=== PATIENT | female | born 1980 | race Caucasian/White ===

== ENCOUNTER 2018-04-16 07:46 | Emergency (ER) | payer SELFPAY | END 2018-04-16 08:50 | disposition home or self-care (01) | LOC: ER 07:46 | DX: M54.32 Sciatica, left side (principal); F17.200 Nicotine dependence, unspecified, uncomplicated | CPT/HCPCS: 99283 ==

== ENCOUNTER 2020-02-25 08:33 | Inpatient (IN) | payer SELFPAY ==
[2020-02-25] VITALS (7 sets, daily range): BP systolic 92–113; BP diastolic 42–79
[~2020-02-25] VITALS: Ht 154.9 cm; Wt 46.6 kg
[~2020-02-25 08:33] MED LIST: CYCL10TA2 PO; GUAI600T47 PO; HYDR-2678 PO; METH4TAB2 PO; NAPR-514 PO
[2020-02-25] MEDS ORDERED: IV NORMAL SALINE 1000ML BAG 1,000 ML IV ONE (09:00)
[2020-02-25] MEDS ORDERED: PROCHLORPERAZINE 10 MG/2 ML VIAL. IV ONE (09:00)
[2020-02-25] MEDS ORDERED: DEXAMETHASONE SOD PHOS 4 MG/ML VIAL IVP ONE (09:00)
[2020-02-25] MEDS ORDERED: diphenhydrAMINE HCL 25 MG CAPSULE PO ONE (09:00)
[2020-02-25 09:09] LABS: CLARITY,URINE TURBID; COLOR,URINE RED; PH,URINE 5.5 (<5.0-8.0)
[2020-02-25 09:26] LABS: BACTERIA,URINE MOD /HPF (0-FEW); SQUAMOUS EPITHELIAL CELL,UR MOD /LPF
[2020-02-25 09:27] LABS: RBC,URINE >40 /HPF (0-2)
[2020-02-25] MEDS ORDERED: MORPHINE SULFATE 10 MG/ML VIAL. IV ONE ×3 (09:30→12:00)
[2020-02-25 09:44] LABS: BASO # 0.1 x10^3/uL (0.0-0.2); BASO % 0 % (0-3); EOS % 0 % (0-3); HEMOGLOBIN 14.7 g/dL (12.0-15.5); LYMPH % 5 % (24-48); MEAN CORPUSCULAR HEMOGLOBIN 34 pg (25-35); MEAN CORPUSCULAR HGB CONC 35 g/dL (31-37); MEAN CORPUSCULAR VOLUME 97 fL (79-100); MONO # 0.9 x10^3/uL (0.0-1.1); MONO % 4 % (0-9); NEUT # 17.9 x10^3/uL (1.8-7.7); NEUT % 90 % (31-73); PLATELET COUNT 245 x10^3/uL (140-400); RED BLOOD COUNT 4.31 x10^6/uL (3.50-5.40); RED CELL DISTRIBUTION WIDTH 12.8 % (11.5-14.5); WHITE BLOOD COUNT 19.9 x10^3/uL (4.0-11.0)
[2020-02-25] MEDS ORDERED: IOHEXOL 300 MG/ML 100ML VIAL. IV ONE (10:00)
[2020-02-25] MEDS ORDERED: IOHEXOL 240 MG/ML 50ML VIAL. PO ONE (10:00)
[2020-02-25] MEDS ORDERED: CONTRAST GIVEN. MC PRN (10:00)
[2020-02-25 10:30] LABS: % BANDS 6 % (0-9); % LYMPHS 6 % (24-48); % MONOS 2 % (0-10); % SEGS 86 % (35-66); PLT ESTIMATE ADEQUATE (ADEQUATE); TOXIC VACUOLATION SLIGHT
[2020-02-25 10:43] LABS: ANION GAP 13 (6-14); BLOOD UREA NITROGEN 20 mg/dL (7-20); BUN/CREATININE RATIO 25 (6-20); CARBON DIOXIDE 24 mmol/L (21-32); CHLORIDE 99 mmol/L (98-107); CREATININE 0.8 mg/dL (0.6-1.0); GFR 80.7; GLUCOSE 110 mg/dL (70-99); POTASSIUM 3.6 mmol/L (3.5-5.1); SODIUM 136 mmol/L (136-145)
[2020-02-25 10:49] LABS: ALBUMIN 3.6 g/dL (3.4-5.0); ALBUMIN/GLOBULIN RATIO 0.9 (1.0-1.7); ALK PHOS 72 U/L (46-116); AST (SGOT) 12 U/L (15-37); TOTAL BILIRUBIN 1.4 mg/dL (0.2-1.0); TOTAL PROTEIN 7.6 g/dL (6.4-8.2)
[2020-02-25 10:50] LABS: ALT (SGPT) < 6 U/L (14-59)
--- NOTE | 2020-02-25 11:18 | RAD ---
Examination: CT ABD PELV W/ORAL IV CONTRAST History: Right lower quadrant abdominal pain Comparison/Correlation: None Findings: Axial images of the abdomen and pelvis were obtained following IV and oral contrast. Sagittal and coronal reformatted images were provided. Visualized lung bases are clear. Liver, spleen, pancreas, adrenal glands, and left kidney are normal. Right renal superior pole calyceal calculus measuring 0.3 cm diameter is nonobstructive. Moderate gaseous distention of the proximal colon is seen. The appendix is very distended fluid and calculi within it. There is ascites about the inferior tip of the right hepatic lobe and along the right paracolic gutter. Fluid is noted posterior to the uterine fundus and superior uterine body and appears partially loculated. This measures 4.8 cm transverse by 1 cm anteroposterior on axial image 59. Urinary bladder is unremarkable. There is no extraluminal gas. Transitional L5 vertebra. Impression: Acute appendicitis. Ascites inferior to the right hepatic lobe inferior tip and right paracolic gutter also seen. While there is small amount of fluid which appears partially loculated along the posterior aspect of the superior uterus, liver is no extraluminal gas or other findings definite for perforation. Nonobstructive right renal superior pole calyceal calculus. PQRS Compliance Statement: One or more of the following individualized dose reduction techniques were utilized for this examination: 1. Automated exposure control 2. Adjustment of the mA and/or kV according to patient size 3. Use of iterative reconstruction technique Electronically signed by: Goyo Reyes MD (02/25/2020 11:15 AM) [id number]
[2020-02-25] MEDS ORDERED: PIPERACILLIN/TAZOBACTAM 3.375 GM in IV NORMAL SALINE 50ML 50 ML IV ONE (12:00)
[2020-02-25] MEDS ORDERED: ONDANSETRON PF 4 MG/2 ML VIAL. IVP ONE (13:00)
--- NOTE | 2020-02-25 14:49 | PHYS DOC ---
Past Medical History Past Medical History: Other Additional Past Medical Histor: PNEUMO 2014 RIGHT LUNG,Collapsed lung x 4. Past Surgical History: Other Additional Past Surgical Histo: collapsed lung, RIGHT CHEST TUBE PLACEMENT Smoking Status: Current Every Day Smoker Alcohol Use: None Drug Use: Marijuana General Adult EDM: Chief Complaint: ABDOMINAL PAIN HPI: HPI: Patient is a 39 year old female who presents with periumbilical and right lower quadrant abdominal pain that started on Monday. This pain is progressively gotten worse. She believes that she may have had a fever on Monday. She has had intermittent nausea and vomiting since the pain started. She states that the pain is so severe she has a hard time walking or moving around. She is never had anything similar to this in the past. She has not been able to eat anything for the last 2 days. She is tried Tylenol and ibuprofen at home without any relief. She denies any vaginal discharge, vaginal bleeding, STD concerns, dysuria, hematuria. Review of Systems: Review of Systems: General: Reports fever, chills, sweats, fatigue Eyes: Denies drainage, blurred vision HENT: Denies rhinorrhea, sore throat Respiratory: Denies cough, shortness of breath, wheezing Cardiac: Denies edema, palpitations, chest pain GI: Reports abdominal pain, N/V MSK: Denies back pain, neck pain Skin: Denies rash, jaundice Neuro: Denies headache, dizziness Psychiatric: Denies SI/HI Heart Score: Risk Factors: Risk Factors: DM, Current or recent (<one month) smoker, HTN, HLP, family history of CAD, obesity. Risk Scores: Score 0 - 3: 2.5% MACE over next 6 weeks - Discharge Home Score 4 - 6: 20.3% MACE over next 6 weeks - Admit for Clinical Observation Score 7 - 10: 72.7% MACE over next 6 weeks - Early Invasive Strategies Current Medications: Current Medications Medications (Trade) Dose Ordered Sig/Chente Start Time Stop Time Status Last Admin Dose Admin Dexamethasone Sodium Phosphate (Decadron) 10 mg 1X ONCE 02/25/20 09:00 02/25/20 09:18 DC Diphenhydramine HCl (Benadryl) 25 mg 1X ONCE 02/25/20 09:00 02/25/20 09:18 DC Info (CONTRAST GIVEN -- Rx MONITORING) 1 each PRN DAILY PRN 02/25/20 10:00 02/27/20 09:59 Iohexol (Omnipaque 240 Mg/ml) 50 ml 1X ONCE 02/25/20 10:00 02/25/20 10:01 DC 02/25/20 10:00 50 ML Iohexol (Omnipaque 300 Mg/ml) 75 ml 1X ONCE 02/25/20 10:00 02/25/20 10:01 DC 02/25/20 10:00 75 ML Morphine Sulfate (Morphine Sulfate) 5 mg 1X ONCE 02/25/20 12:00 02/25/20 12:01 DC 02/25/20 12:47 5 MG Piperacillin Sod/ Tazobactam Sod 3.375 gm/Sodium Chloride 50 ml @ 100 mls/hr 1X ONCE 02/25/20 12:00 02/25/20 12:29 DC 02/25/20 13:19 100 MLS/HR Prochlorperazine Edisylate (Compazine) 10 mg 1X ONCE 02/25/20 09:00 02/25/20 09:18 DC Sodium Chloride 1,000 ml @ 0 mls/hr 1X ONCE 02/25/20 09:00 02/25/20 09:01 DC 02/25/20 09:46 1,000 MLS/HR Allergies: Allergies: Allergies Coded Allergies Type Severity Reaction Last Updated Verified No Known Drug Allergies 02/25/20 No Physical Exam: PE: Constitutional: Well developed, well nourished, Cooperative, NAD, distressed, rolling around in pain HEENT: Normocephalic, atraumatic, oropharynx moist, EOMI, PERRL, no drainage from eyes, normal conjunctiva Neck: Supple, normal range of motion, no stridor Cardiovascular: Tachycardic, 2+ radial pulses bilaterally, no edema Respiratory: CTA bilaterally, no respiratory distress, no wheezing/crackles Abdomen: Soft, nondistended, no masses, periumbilical and right lower quadrant tenderness with voluntary guarding Skin: Warm, dry, intact Extremities: No obvious deformities Neurologic: Alert and Oriented x3, motor and sensory function grossly normal, no focal deficits Psychologic: Normal affect, normal judgment, normal mood. No SI/HI Current Patient Data: Labs: Laboratory Tests Test 02/25/20 08:45 02/25/20 09:00 02/25/20 09:33 02/25/20 10:25 Urine Collection Type Unknown Urine Color Red Urine Clarity Turbid Urine pH 5.5 (<5.0-8.0) Urine Specific [place] >=1.030 (1.000-1.030) Urine Protein mg/dL (NEG-TRACE) Urine Glucose (UA) mg/dL (NEG) Urine Ketones (Stick) mg/dL (NEG) Urine Blood (NEG) Urine Nitrite (NEG) Urine Bilirubin (NEG) Urine Urobilinogen Dipstick mg/dL (0.2 mg/dL) Urine Leukocyte Esterase (NEG) Urine RBC >40 /HPF (0-2) Urine WBC 5-10 /HPF (0-4) Urine Squamous Epithelial Cells Mod /LPF Urine Bacteria Mod /HPF (0-FEW) POC Urine HCG, Qualitative Hcg negative (Negative) White Blood Count 19.9 x10^3/uL (4.0-11.0) H Red Blood Count 4.31 x10^6/uL (3.50-5.40) Hemoglobin 14.7 g/dL (12.0-15.5) Hematocrit 42.0 % (36.0-47.0) Mean Corpuscular Volume 97 fL (79-100) Mean Corpuscular Hemoglobin 34 pg (25-35) Mean Corpuscular Hemoglobin Concent 35 g/dL (31-37) Red Cell Distribution Width 12.8 % (11.5-14.5) Platelet Count 245 x10^3/uL (140-400) Neutrophils (%) (Auto) 90 % (31-73) H Lymphocytes (%) (Auto) 5 % (24-48) L Monocytes (%) (Auto) 4 % (0-9) Eosinophils (%) (Auto) 0 % (0-3) Basophils (%) (Auto) 0 % (0-3) Neutrophils # (Auto) 17.9 x10^3/uL (1.8-7.7) H Lymphocytes # (Auto) 1.0 x10^3/uL (1.0-4.8) Monocytes # (Auto) 0.9 x10^3/uL (0.0-1.1) Eosinophils # (Auto) 0.0 x10^3/uL (0.0-0.7) Basophils # (Auto) 0.1 x10^3/uL (0.0-0.2) Segmented Neutrophils % 86 % (35-66) H Band Neutrophils % 6 % (0-9) Lymphocytes % 6 % (24-48) L Monocytes % 2 % (0-10) Toxic Vacuolation Slight Platelet Estimate Adequate (ADEQUATE) Sodium Level 136 mmol/L (136-145) Potassium Level 3.6 mmol/L (3.5-5.1) Chloride Level 99 mmol/L (98-107) Carbon Dioxide Level 24 mmol/L (21-32) Anion Gap 13 (6-14) Blood Urea Nitrogen 20 mg/dL (7-20) Creatinine 0.8 mg/dL (0.6-1.0) Estimated GFR (Cockcroft-Gault) 80.7 BUN/Creatinine Ratio 25 (6-20) H Glucose Level 110 mg/dL (70-99) H Calcium Level 9.0 mg/dL (8.5-10.1) Total Bilirubin 1.4 mg/dL (0.2-1.0) H Aspartate Amino Transferase (AST) 12 U/L (15-37) L Alanine Aminotransferase (ALT) < 6 U/L (14-59) L Alkaline Phosphatase 72 U/L (46-116) Total Protein 7.6 g/dL (6.4-8.2) Albumin 3.6 g/dL (3.4-5.0) Albumin/Globulin Ratio 0.9 (1.0-1.7) L Laboratory Tests 02/25/20 09:33 Laboratory Tests 02/25/20 10:25 Vital Signs: Vital Signs Date Time Temp Pulse Resp B/P (MAP) Pulse Ox O2 Delivery O2 Flow Rate FiO2 02/25/20 14:11 80 23 112/59 (76) 96 Room Air 02/25/20 08:45 97.6 97.6 EKG: EKG: [] Radiology/Procedures: Radiology/Procedures: [] Course & Med Decision Making: Course & Med Decision Making Pertinent Labs and Imaging studies reviewed. (See chart for details) Patient is a 39 year- old female who presents to the Emergency Room complaining of abdominal pain, nausea, vomiting. On exam, patient has lower abdominal tenderness concerning for possible appendicitis. Other differential includes kidney stone, pyelonephritis, gastroenteritis, ovarian cyst. Patient will treated symptomatically. CBC, CMP, lipase, UA, CT abdomen and pelvis was ordered to evaluate for cause of symptoms. CT is suggestive of appendicitis. Antibiotics were ordered. Patient was discussed with on the on-call surgeon, Dr. Kohli. At this time, patient will be admitted for further management by the surgery team. Results and plan were discussed with the patient and patient states understanding. Patient was given the opportunity to ask questions and all questions were answered. Dragon Disclaimer: Dragon Disclaimer: This electronic medical record was generated, in whole or in part, using a voice recognition dictation system. Departure Departure Impression: Primary Impression: Appendicitis with peritonitis Disposition: ADMITTED INPATIENT Condition: STABLE Referrals: NO PCP (PCP) ELISABETH LUTZ MD February 25, 2020 14:49
[2020-02-25] MEDS ORDERED: IV RINGERS,LACTATED 1000ML 1,000 ML IV SCH ×2 (15:04)
[2020-02-25] MEDS ORDERED: LIDOCAINE 1% PF 2 ML VIAL. ID PRN ×2 (15:15)
[2020-02-25] MEDS ORDERED: HYDROmorphone 2 MG/ML VIAL IV PRN ×2 (15:15)
[2020-02-25] MEDS ORDERED: ONDANSETRON PF 4 MG/2 ML VIAL. IV PRN ×2 (15:15)
[2020-02-25] MEDS ORDERED: MORPHINE SULFATE 2 MG/ML VIAL. IV PRN ×3 (15:15→17:15)
[2020-02-25] MEDS ORDERED: fentaNYL PF VIAL 100 MCG/2 ML VIAL IV PRN ×4 (15:15)
[2020-02-25] MEDS ORDERED: PROCHLORPERAZINE 10 MG/2 ML VIAL. IV PRN ×2 (15:15)
[2020-02-25] MEDS ORDERED: SEVOFLURANE 61 TO 120 MINUTES. IH ONE (15:21)
[2020-02-25] MEDS ORDERED: GLYCOPYRROLATE 1 MG/5 ML VIAL. ONE (15:21)
[2020-02-25] MEDS ORDERED: PROPOFOL 10 MG/ML (20ML) VIAL. IV ONE (15:22)
[2020-02-25] MEDS ORDERED: ONDANSETRON PF 4 MG/2 ML VIAL. ONE (15:22)
[2020-02-25] MEDS ORDERED: fentaNYL PF VIAL 100 MCG/2 ML VIAL ONE ×2 (15:22→16:52)
[2020-02-25] MEDS ORDERED: MIDAZOLAM HCL/PF 2 MG/2 ML VIAL. ONE (15:22)
[2020-02-25] MEDS ORDERED: SUCCINYLCHOLINE 200 MG/10 ML VIAL. ONE (15:22)
[2020-02-25] MEDS ORDERED: ROCURONIUM 50 MG/5 ML VIAL. ONE (15:22)
[2020-02-25] MEDS ORDERED: LIDOCAINE 2% PF 5 ML VIAL. ONE (15:22)
[2020-02-25] MEDS ORDERED: DEXAMETHASONE SOD PHOS 4 MG/ML VIAL ONE (15:22)
[2020-02-25] MEDS ORDERED: NEOSTIGMINE METHYLSULFATE 5 MG/5 ML SYRINGE. ONE (15:22)
[2020-02-25] MEDS ORDERED: KETOROLAC 30 MG/ML VIAL. ONE (15:22)
[2020-02-25] MEDS ORDERED: BUPIVACAINE-EPI 0.5%-1:200000 MPF 30 ML VIAL. ONE (15:34)
--- NOTE | 2020-02-25 15:40 | PDOC1 ---
History and Physical Date of Admission Date of Admission DATE: 02/25/20 TIME: 15:35 Identification/Chief Complaint Chief Complaint RLQ abd pain Source Source: Chart review, Patient History of Present Illness History of Present Illness 39 yo F with c/o RLQ abd pain. Pt developed N/V abd pain, localizing RLQ, starting 02/21 and gradually worsened prompting admission today. Past Medical History Pulmonary: Other (PTX) Past Surgical History Past Surgical History: Other (multiple chest tubes) Family History Family History: Heart Disease, Stroke Social History Smoke: 1 pack per day ALCOHOL: none Drugs: None, Marijuana Current Problem List Problem List Problems Medical Problems: (1) Appendicitis with peritonitis Status: Acute Current Medications Current Medications Current Medications Prochlorperazine Edisylate (Compazine) 10 mg 1X ONCE IV ; Start 02/25/20 at 09:00; Stop 02/25/20 at 09:18; Status DC Sodium Chloride 1,000 ml @ 0 mls/hr 1X ONCE IV Last administered on 02/25/20at 09:46; Start 02/25/20 at 09:00; Stop 02/25/20 at 09:01; Status DC Dexamethasone Sodium Phosphate (Decadron) 10 mg 1X ONCE IVP ; Start 02/25/20 at 09:00; Stop 02/25/20 at 09:18; Status DC Diphenhydramine HCl (Benadryl) 25 mg 1X ONCE PO ; Start 02/25/20 at 09:00; Stop 02/25/20 at 09:18; Status DC Morphine Sulfate (Morphine Sulfate) 5 mg 1X ONCE IV Last administered on 02/25/20at 09:50; Start 02/25/20 at 09:30; Stop 02/25/20 at 09:31; Status DC Iohexol (Omnipaque 300 Mg/ml) 75 ml 1X ONCE IV Last administered on 02/25/20at 10:00; Start 02/25/20 at 10:00; Stop 02/25/20 at 10:01; Status DC Iohexol (Omnipaque 240 Mg/ml) 50 ml 1X ONCE PO Last administered on 02/25/20at 10:00; Start 02/25/20 at 10:00; Stop 02/25/20 at 10:01; Status DC Info (CONTRAST GIVEN -- Rx MONITORING) 1 each PRN DAILY PRN MC SEE COMMENTS; Start 02/25/20 at 10:00; Stop 02/27/20 at 09:59 Morphine Sulfate (Morphine Sulfate) 5 mg 1X ONCE IV Last administered on 02/25/20at 10:46; Start 02/25/20 at 10:45; Stop 02/25/20 at 10:46; Status DC Morphine Sulfate (Morphine Sulfate) 5 mg 1X ONCE IV Last administered on 02/25/20at 12:47; Start 02/25/20 at 12:00; Stop 02/25/20 at 12:01; Status DC Piperacillin Sod/ Tazobactam Sod 3.375 gm/Sodium Chloride 50 ml @ 100 mls/hr 1X ONCE IV Last administered on 02/25/20at 13:19; Start 02/25/20 at 12:00; Stop 02/25/20 at 12:29; Status DC Ondansetron HCl (Zofran) 4 mg 1X ONCE IVP Last administered on 02/25/20at 13:18; Start 02/25/20 at 13:00; Stop 02/25/20 at 13:01; Status DC Morphine Sulfate (Morphine Sulfate) 2 mg PRN Q2HR PRN IV PAIN; Start 02/25/20 at 15:15 Ondansetron HCl (Zofran) 4 mg PRN Q6HRS PRN IV NAUSEA/VOMITING; Start 02/25/20 at 15:15; Stop 02/26/20 at 15:14; Status UNV Fentanyl Citrate (Fentanyl 2ml Vial) 25 mcg PRN Q5MIN PRN IV MILD PAIN 1-3; Start 02/25/20 at 15:15; Stop 02/26/20 at 15:14; Status UNV Fentanyl Citrate (Fentanyl 2ml Vial) 50 mcg PRN Q5MIN PRN IV MODERATE TO SEVERE PAIN; Start 02/25/20 at 15:15; Stop 02/26/20 at 15:14; Status UNV Morphine Sulfate (Morphine Sulfate) 1 mg PRN Q10MIN PRN IV SEVERE PAIN 7-10; Start 02/25/20 at 15:15; Stop 02/26/20 at 15:14; Status UNV Ringer's Solution 1,000 ml @ 30 mls/hr Q24H IV ; Start 02/25/20 at 15:04; Stop 02/26/20 at 03:03; Status UNV Lidocaine HCl (Xylocaine-Mpf 1% 2ml Vial) 2 ml PRN 1X PRN ID PRIOR TO IV START; Start 02/25/20 at 15:15; Stop 02/26/20 at 15:14; Status UNV Hydromorphone HCl (Dilaudid) 0.5 mg PRN Q10MIN PRN IV SEV PAIN, Second choice; Start 02/25/20 at 15:15; Stop 02/26/20 at 15:14; Status UNV Prochlorperazine Edisylate (Compazine) 5 mg PACU PRN PRN IV NAUSEA, MRX1; Star t 02/25/20 at 15:15; Stop 02/26/20 at 15:14; Status UNV Ondansetron HCl (Zofran) 4 mg PRN Q6HRS PRN IV NAUSEA/VOMITING; Start 02/25/20 at 15:15; Stop 02/25/20 at 22:00 Fentanyl Citrate (Fentanyl 2ml Vial) 25 mcg PRN Q5MIN PRN IV MILD PAIN 1-3; Start 02/25/20 at 15:15; Stop 02/25/20 at 22:00 Fentanyl Citrate (Fentanyl 2ml Vial) 50 mcg PRN Q5MIN PRN IV MODERATE TO SEVERE PAIN; Start 02/25/20 at 15:15; Stop 02/25/20 at 20:00 Morphine Sulfate (Morphine Sulfate) 1 mg PRN Q10MIN PRN IV SEVERE PAIN 7-10; Start 02/25/20 at 15:15; Stop 02/25/20 at 20:00 Ringer's Solution 1,000 ml @ 30 mls/hr Q24H IV ; Start 02/25/20 at 15:04; Stop 02/26/20 at 03:03 Lidocaine HCl (Xylocaine-Mpf 1% 2ml Vial) 2 ml PRN 1X PRN ID PRIOR TO IV START; Start 02/25/20 at 15:15; Stop 02/25/20 at 22:00 Hydromorphone HCl (Dilaudid) 0.5 mg PRN Q10MIN PRN IV SEV PAIN, Second choice; Start 02/25/20 at 15:15; Stop 02/25/20 at 22:00 Prochlorperazine Edisylate (Compazine) 5 mg PACU PRN PRN IV NAUSEA, MRX1; Start 02/25/20 at 15:15; Stop 02/25/20 at 22:00 Glycopyrrolate (Robinul) 1 mg STK-MED ONCE .ROUTE ; Start 02/25/20 at 15:21; Stop 02/25/20 at 15:22; Status DC Sevoflurane (Ultane) 60 ml STK-MED ONCE IH ; Start 02/25/20 at 15:21; Stop 02/25/20 at 15:22; Status DC Succinylcholine Chloride (Anectine) 200 mg STK-MED ONCE .ROUTE ; Start 02/25/20 at 15:22; Stop 02/25/20 at 15:22; Status DC Rocuronium [place] (Zemuron) 50 mg STK-MED ONCE .ROUTE ; Start 02/25/20 at 15:22; Stop 02/25/20 at 15:22; Status DC Fentanyl Citrate (Fentanyl 2ml Vial) 100 mcg STK-MED ONCE .ROUTE ; Start 02/25/20 at 15:22; Stop 02/25/20 at 15:22; Status DC Neostigmine [place] (Neostigmine Methylsulfate) 5 mg STK-MED ONCE .ROUTE ; Start 02/25/20 at 15:22; Stop 02/25/20 at 15:22; Status DC Midazolam HCl (Versed) 2 mg STK-MED ONCE .ROUTE ; Start 02/25/20 at 15:22; Stop 02/25/20 at 15:22; Status DC Propofol (Diprivan) 200 mg STK-MED ONCE IV ; Start 02/25/20 at 15:22; Stop 02/25/20 at 15:22; Status DC Lidocaine HCl (Lidocaine Pf 2% Vial) 5 ml STK-MED ONCE .ROUTE ; Start 02/25/20 at 15:22; Stop 02/25/20 at 15:22; Status DC Ketorolac Tromethamine (Toradol 30mg Vial) 30 mg STK-MED ONCE .ROUTE ; Start 02/25/20 at 15:22; Stop 02/25/20 at 15:22; Status DC Ondansetron HCl (Zofran) 4 mg STK-MED ONCE .ROUTE ; Start 02/25/20 at 15:22; St op 02/25/20 at 15:23; Status DC Dexamethasone Sodium Phosphate (Decadron) 4 mg STK-MED ONCE .ROUTE ; Start 02/25/20 at 15:22; Stop 02/25/20 at 15:23; Status DC Active Scripts Active Naproxen 500 Mg Tablet 1 Tab PO BID Cyclobenzaprine Hcl 10 Mg Tablet 1 Tab PO TID Medrol (Methylprednisolone) 4 Mg Tab.ds.pk 1 Pkg PO UD Mucinex (Guaifenesin) 600 Mg Tablet.er 1 Tab PO BID Lortab 5-325 mg Tablet (Hydrocodone/Acetaminophen) 1 Each Tablet 1 Tab PO PRN Q6HRS PRN 0 Days Reported Cyclobenzaprine Hcl 10 Mg Tablet 1 Tab PO TID Allergies Allergies: Coded Allergies: No Known Drug Allergies (Unverified , 02/25/20) ROS Gastrointestinal: Yes Nausea, Yes Vomiting, Yes Abdominal Pain Physical Exam General: Alert, Oriented X3, Cooperative, moderate distress HEENT: Atraumatic Lungs: Normal air movement Abdomen: Soft, Other (TTP RLQ) Rectal Exam: not examined Extremities: No clubbing, No cyanosis Skin: No rashes, No breakdown Neuro: Normal speech, Sensation intact Psych/Mental Status: Mental status NL, Mood NL Vitals Vitals Vital Signs Date Time Temp Pulse Resp B/P (MAP) Pulse Ox O2 Delivery O2 Flow Rate FiO2 02/25/20 14:11 80 23 112/59 (76) 96 Room Air 02/25/20 08:45 97.6 97.6 Labs Labs Laboratory Tests Test 02/25/20 08:45 02/25/20 09:00 02/25/20 09:33 02/25/20 10:25 Urine Collection Type Unknown Urine Color Red Urine Clarity Turbid Urine pH 5.5 (<5.0-8.0) Urine Specific [place] >=1.030 (1.000-1.030) Urine Protein mg/dL (NEG-TRACE) Urine Glucose (UA) mg/dL (NEG) Urine Ketones (Stick) mg/dL (NEG) Urine Blood (NEG) Urine Nitrite (NEG) Urine Bilirubin (NEG) Urine Urobilinogen Dipstick mg/dL (0.2 mg/dL) Urine Leukocyte Esterase (NEG) Urine RBC >40 /HPF (0-2) Urine WBC 5-10 /HPF (0-4) Urine Squamous Epithelial Cells Mod /LPF Urine Bacteria Mod /HPF (0-FEW) Bedside Urine HCG, Qualitative Hcg negative (Negative) White Blood Count 19.9 x10^3/uL (4.0-11.0) Red Blood Count 4.31 x10^6/uL (3.50-5.40) Hemoglobin 14.7 g/dL (12.0-15.5) Hematocrit 42.0 % (36.0-47.0) Mean Corpuscular Volume 97 fL (79-100) Mean Corpuscular Hemoglobin 34 pg (25-35) Mean Corpuscular Hemoglobin Concent 35 g/dL (31-37) Red Cell Distribution Width 12.8 % (11.5-14.5) Platelet Count 245 x10^3/uL (140-400) Neutrophils (%) (Auto) 90 % (31-73) Lymphocytes (%) (Auto) 5 % (24-48) Monocytes (%) (Auto) 4 % (0-9) Eosinophils (%) (Auto) 0 % (0-3) Basophils (%) (Auto) 0 % (0-3) Neutrophils # (Auto) 17.9 x10^3/uL (1.8-7.7) Lymphocytes # (Auto) 1.0 x10^3/uL (1.0-4.8) Monocytes # (Auto) 0.9 x10^3/uL (0.0-1.1) Eosinophils # (Auto) 0.0 x10^3/uL (0.0-0.7) Basophils # (Auto) 0.1 x10^3/uL (0.0-0.2) Segmented Neutrophils % 86 % (35-66) Band Neutrophils % 6 % (0-9) Lymphocytes % 6 % (24-48) Monocytes % 2 % (0-10) Toxic Vacuolation Slight Platelet Estimate Adequate (ADEQUATE) Sodium Level 136 mmol/L (136-145) Potassium Level 3.6 mmol/L (3.5-5.1) Chloride Level 99 mmol/L (98-107) Carbon Dioxide Level 24 mmol/L (21-32) Anion Gap 13 (6-14) Blood Urea Nitrogen 20 mg/dL (7-20) Creatinine 0.8 mg/dL (0.6-1.0) Estimated GFR (Cockcroft-Gault) 80.7 BUN/Creatinine Ratio 25 (6-20) Glucose Level 110 mg/dL (70-99) Calcium Level 9.0 mg/dL (8.5-10.1) Total Bilirubin 1.4 mg/dL (0.2-1.0) Aspartate Amino Transf (AST/SGOT) 12 U/L (15-37) Alanine Aminotransferase (ALT/SGPT) < 6 U/L (14-59) Alkaline Phosphatase 72 U/L (46-116) Total Protein 7.6 g/dL (6.4-8.2) Albumin 3.6 g/dL (3.4-5.0) Albumin/Globulin Ratio 0.9 (1.0-1.7) Laboratory Tests Test 02/25/20 08:45 02/25/20 09:00 02/25/20 09:33 02/25/20 10:25 Urine Collection Type Unknown Urine Color Red Urine Clarity Turbid Urine pH 5.5 (<5.0-8.0) Urine Specific [place] >=1.030 (1.000-1.030) Urine Protein mg/dL (NEG-TRACE) Urine Glucose (UA) mg/dL (NEG) Urine Ketones (Stick) mg/dL (NEG) Urine Blood (NEG) Urine Nitrite (NEG) Urine Bilirubin (NEG) Urine Urobilinogen Dipstick mg/dL (0.2 mg/dL) Urine Leukocyte Esterase (NEG) Urine RBC >40 /HPF (0-2) Urine WBC 5-10 /HPF (0-4) Urine Squamous Epithelial Cells Mod /LPF Urine Bacteria Mod /HPF (0-FEW) Bedside Urine HCG, Qualitative Hcg negative (Negative) White Blood Count 19.9 x10^3/uL (4.0-11.0) Red Blood Count 4.31 x10^6/uL (3.50-5.40) Hemoglobin 14.7 g/dL (12.0-15.5) Hematocrit 42.0 % (36.0-47.0) Mean Corpuscular Volume 97 fL (79-100) Mean Corpuscular Hemoglobin 34 pg (25-35) Mean Corpuscular Hemoglobin Concent 35 g/dL (31-37) Red Cell Distribution Width 12.8 % (11.5-14.5) Platelet Count 245 x10^3/uL (140-400) Neutrophils (%) (Auto) 90 % (31-73) Lymphocytes (%) (Auto) 5 % (24-48) Monocytes (%) (Auto) 4 % (0-9) Eosinophils (%) (Auto) 0 % (0-3) Basophils (%) (Auto) 0 % (0-3) Neutrophils # (Auto) 17.9 x10^3/uL (1.8-7.7) Lymphocytes # (Auto) 1.0 x10^3/uL (1.0-4.8) Monocytes # (Auto) 0.9 x10^3/uL (0.0-1.1) Eosinophils # (Auto) 0.0 x10^3/uL (0.0-0.7) Basophils # (Auto) 0.1 x10^3/uL (0.0-0.2) Segmented Neutrophils % 86 % (35-66) Band Neutrophils % 6 % (0-9) Lymphocytes % 6 % (24-48) Monocytes % 2 % (0-10) Toxic Vacuolation Slight Platelet Estimate Adequate (ADEQUATE) Sodium Level 136 mmol/L (136-145) Potassium Level 3.6 mmol/L (3.5-5.1) Chloride Level 99 mmol/L (98-107) Carbon Dioxide Level 24 mmol/L (21-32) Anion Gap 13 (6-14) Blood Urea Nitrogen 20 mg/dL (7-20) Creatinine 0.8 mg/dL (0.6-1.0) Estimated GFR (Cockcroft-Gault) 80.7 BUN/Creatinine Ratio 25 (6-20) Glucose Level 110 mg/dL (70-99) Calcium Level 9.0 mg/dL (8.5-10.1) Total Bilirubin 1.4 mg/dL (0.2-1.0) Aspartate Amino Transf (AST/SGOT) 12 U/L (15-37) Alanine Aminotransferase (ALT/SGPT) < 6 U/L (14-59) Alkaline Phosphatase 72 U/L (46-116) Total Protein 7.6 g/dL (6.4-8.2) Albumin 3.6 g/dL (3.4-5.0) Albumin/Globulin Ratio 0.9 (1.0-1.7) Images Images CT c/w appendicitis, fluid concerning for perforation, but not definitive VTE Prophylaxis Ordered VTE Prophylaxis Devices: Yes VTE Pharmacological Prophylaxi: No Assessment/Plan Assessment/Plan appendicitis abx given in ER, with some improvement in pain TO OR for laparoscopic versus open appendectomy. R/R/B/A d/w pt. Risks, including, but not limited to: bleeding, infection, damage to surrounding structures, risk of anesthesia, risk of open, risk of . She appears to understand, her questions are answered and she elects to proceed. JUANIS BEDOYA MD February 25, 2020 15:40
[2020-02-25] MEDS ORDERED: cefOXitin SODIUM IV Push 2 GM VIAL. IVP ONE (16:00)
[2020-02-25] MEDS: IV NORMAL SALINE 1000ML BAG 1,000 ML IV SCH (17:12)
[2020-02-25] MEDS ORDERED: 0.9 % SODIUM CHLORIDE 10 ML DISP.SYRIN. IV PRN (17:15)
[2020-02-25] MEDS ORDERED: NALOXONE 0.4 MG/ML VIAL. IV PRN (17:15)
[2020-02-25] MEDS ORDERED: ONDANSETRON PF 4 MG/2 ML VIAL. IVP PRN (17:15)
--- NOTE | 2020-02-25 17:26 | PDOC4 ---
OPERATIVE NOTE Date: Date: February 25, 2020 Pre-Op Diagnosis: Appendicitis Post-Op Diagnosis: Perforated appendicitis with feculent peritonitis Procedure Performed: laparoscopic appendectomy Surgeon: Estevan Bedoya Anesthesia Type: GETA plus local Blood Loss: 50 Specimans Obtained: appendix Findings: Gangrenous appendicitis with feculent material outside of appendix, diffuse peritonitis with intraloop abscess Complications: none Operative Note: After obtaining informed consent, patient was taken to OR, induced under GETA and prepped in the usual fashion. 5 mm ports placed LLQ and suprapubic, 12 port placed supraumbilical, all under laparoscopic guidance. Abdominal cavity was explored and noted as above. Cecum in deep pelvis and gently bluntly brought up. Appendix identified off confluence of cecum. Defect was created in mesoappendix at level of cecum and general load PRINCESS taken across base of appendix, proximal to area of diffuse perforation and gangrenous, across good viable tissue. Mesoappendix was then sequentially dissected, close to appendix and mesoappendix controlled with clips. Appendix placed in bag, delivered and sent to pathology. Copious irrigation with 3 liters of saline. Multiple loops of small bowel bluntly freed up as well as right ovary and fallopian tube. No evidence of bleeding or other pathology at time of closure. Fascia repaired wit h 0 vicryl. Skin repaired with 4 0 monocryl. Dressing placed. Patient tolerated procedure well and sent to PACU in stable condition. All counts correct. Wound class is 4, dirty. JUANIS BEDOYA MD February 25, 2020 17:26
[2020-02-25] MEDS: PIPERACILLIN/TAZOBACTAM 3.375 GM in IV NORMAL SALINE 50ML 50 ML IV SCH (18:32)
[2020-02-25] MEDS: IV RINGERS,LACTATED 1000ML 1,000 ML IV SCH (18:32)
--- NOTE | 2020-02-25 18:34 | NUR ---
Pt. back from PACU via bed, denies pain, c/o feeling "sore", states she feels much better. [facility] sites CDI x3.
[2020-02-25] MEDS: DOCUSATE SODIUM 100 MG CAPSULE. PO SCH (21:00)
[2020-02-25] MEDS: HYDROcodone/APAP 5/325MG 1 TAB TABLET PO PRN (21:25)
[2020-02-26] MEDS: PIPERACILLIN/TAZOBACTAM 3.375 GM in IV NORMAL SALINE 50ML 50 ML IV SCH ×5 (00:20→23:34)
[2020-02-26 02:43] LABS: BASO % 0 % (0-3); EOS % 0 % (0-3); HEMATOCRIT 34.1 % (36.0-47.0); HEMOGLOBIN 11.8 g/dL (12.0-15.5); LYMPH # 0.6 x10^3/uL (1.0-4.8); LYMPH % 5 % (24-48); MEAN CORPUSCULAR HEMOGLOBIN 34 pg (25-35); MEAN CORPUSCULAR HGB CONC 35 g/dL (31-37); MEAN CORPUSCULAR VOLUME 98 fL (79-100); MONO # 0.6 x10^3/uL (0.0-1.1); MONO % 5 % (0-9); NEUT # 11.4 x10^3/uL (1.8-7.7); NEUT % 91 % (31-73); PLATELET COUNT 198 x10^3/uL (140-400); RED BLOOD COUNT 3.47 x10^6/uL (3.50-5.40); RED CELL DISTRIBUTION WIDTH 12.7 % (11.5-14.5); WHITE BLOOD COUNT 12.6 x10^3/uL (4.0-11.0)
[2020-02-26 02:58] VITALS: BP 97/62
[2020-02-26 03:10] LABS: CREATININE 0.8 mg/dL (0.6-1.0); GFR 80.7; POTASSIUM 3.5 mmol/L (3.5-5.1)
[2020-02-26] MEDS: IV RINGERS,LACTATED 1000ML 1,000 ML IV SCH ×3 (03:22→23:35)
[2020-02-26] MEDS: ENOXAPARIN 40 MG/0.4 ML SYRINGE. SQ SCH (04:57)
[2020-02-26 07:15] VITALS: BP 109/57
[2020-02-26] MEDS: HYDROcodone/APAP 5/325MG 1 TAB TABLET PO PRN ×3 (08:33→23:39)
[2020-02-26] MEDS: DOCUSATE SODIUM 100 MG CAPSULE. PO SCH ×2 (08:33→20:52)
--- NOTE | 2020-02-26 09:56 | PDOC ---
SURGICAL PROGRESS NOTE Subjective Pt with c/o soreness, but improved over preop Vital Signs Vital Signs Date Time Temp Pulse Resp B/P (MAP) Pulse Ox O2 Delivery O2 Flow Rate FiO2 02/26/20 08:33 97 Room Air 02/26/20 07:15 98.1 57 16 109/57 (74) 98.1 02/25/20 17:28 10 I&O Intake and Output 02/26/20 07:00 Intake Total 2610 ml Output Total 350 ml Balance 2260 ml Intake Oral 660 ml IV Total 1950 ml Output Urine Total 300 ml Estimated Blood Loss 50 ml # Voids 3 General: Alert, Oriented X3, Cooperative, mild distress Abdomen: Soft, Other (mild TTP) Labs Laboratory Tests Test 02/25/20 08:45 02/25/20 09:00 02/25/20 09:33 02/25/20 10:25 Urine Collection Type Unknown Urine Color Red Urine Clarity Turbid Urine pH 5.5 (<5.0-8.0) Urine Specific [place] >=1.030 (1.000-1.030) Urine Protein mg/dL (NEG-TRACE) Urine Glucose (UA) mg/dL (NEG) Urine Ketones (Stick) mg/dL (NEG) Urine Blood (NEG) Urine Nitrite (NEG) Urine Bilirubin (NEG) Urine Urobilinogen Dipstick mg/dL (0.2 mg/dL) Urine Leukocyte Esterase (NEG) Urine RBC >40 /HPF (0-2) Urine WBC 5-10 /HPF (0-4) Urine Squamous Epithelial Cells Mod /LPF Urine Bacteria Mod /HPF (0-FEW) Bedside Urine HCG, Qualitative Hcg negative (Negative) White Blood Count 19.9 x10^3/uL (4.0-11.0) Red Blood Count 4.31 x10^6/uL (3.50-5.40) Hemoglobin 14.7 g/dL (12.0-15.5) Hematocrit 42.0 % (36.0-47.0) Mean Corpuscular Volume 97 fL (79-100) Mean Corpuscular Hemoglobin 34 pg (25-35) Mean Corpuscular Hemoglobin Concent 35 g/dL (31-37) Red Cell Distribution Width 12.8 % (11.5-14.5) Platelet Count 245 x10^3/uL (140-400) Neutrophils (%) (Auto) 90 % (31-73) Lymphocytes (%) (Auto) 5 % (24-48) Monocytes (%) (Auto) 4 % (0-9) Eosinophils (%) (Auto) 0 % (0-3) Basophils (%) (Auto) 0 % (0-3) Neutrophils # (Auto) 17.9 x10^3/uL (1.8-7.7) Lymphocytes # (Auto) 1.0 x10^3/uL (1.0-4.8) Monocytes # (Auto) 0.9 x10^3/uL (0.0-1.1) Eosinophils # (Auto) 0.0 x10^3/uL (0.0-0.7) Basophils # (Auto) 0.1 x10^3/uL (0.0-0.2) Segmented Neutrophils % 86 % (35-66) Band Neutrophils % 6 % (0-9) Lymphocytes % 6 % (24-48) Monocytes % 2 % (0-10) Toxic Vacuolation Slight Platelet Estimate Adequate (ADEQUATE) Sodium Level 136 mmol/L (136-145) Potassium Level 3.6 mmol/L (3.5-5.1) Chloride Level 99 mmol/L (98-107) Carbon Dioxide Level 24 mmol/L (21-32) Anion Gap 13 (6-14) Blood Urea Nitrogen 20 mg/dL (7-20) Creatinine 0.8 mg/dL (0.6-1.0) Estimated GFR (Cockcroft-Gault) 80.7 BUN/Creatinine Ratio 25 (6-20) Glucose Level 110 mg/dL (70-99) Calcium Level 9.0 mg/dL (8.5-10.1) Total Bilirubin 1.4 mg/dL (0.2-1.0) Aspartate Amino Transf (AST/SGOT) 12 U/L (15-37) Alanine Aminotransferase (ALT/SGPT) < 6 U/L (14-59) Alkaline Phosphatase 72 U/L (46-116) Total Protein 7.6 g/dL (6.4-8.2) Albumin 3.6 g/dL (3.4-5.0) Albumin/Globulin Ratio 0.9 (1.0-1.7) Test 02/26/20 01:42 White Blood Count 12.6 x10^3/uL (4.0-11.0) Red Blood Count 3.47 x10^6/uL (3.50-5.40) Hemoglobin 11.8 g/dL (12.0-15.5) Hematocrit 34.1 % (36.0-47.0) Mean Corpuscular Volume 98 fL (79-100) Mean Corpuscular Hemoglobin 34 pg (25-35) Mean Corpuscular Hemoglobin Concent 35 g/dL (31-37) Red Cell Distribution Width 12.7 % (11.5-14.5) Platelet Count 198 x10^3/uL (140-400) Neutrophils (%) (Auto) 91 % (31-73) Lymphocytes (%) (Auto) 5 % (24-48) Monocytes (%) (Auto) 5 % (0-9) Eosinophils (%) (Auto) 0 % (0-3) Basophils (%) (Auto) 0 % (0-3) Neutrophils # (Auto) 11.4 x10^3/uL (1.8-7.7) Lymphocytes # (Auto) 0.6 x10^3/uL (1.0-4.8) Monocytes # (Auto) 0.6 x10^3/uL (0.0-1.1) Eosinophils # (Auto) 0.0 x10^3/uL (0.0-0.7) Basophils # (Auto) 0.0 x10^3/uL (0.0-0.2) Sodium Level 137 mmol/L (136-145) Potassium Level 3.5 mmol/L (3.5-5.1) Chloride Level 103 mmol/L (98-107) Carbon Dioxide Level 24 mmol/L (21-32) Anion Gap 10 (6-14) Blood Urea Nitrogen 16 mg/dL (7-20) Creatinine 0.8 mg/dL (0.6-1.0) Estimated GFR (Cockcroft-Gault) 80.7 Glucose Level 97 mg/dL (70-99) Calcium Level 8.0 mg/dL (8.5-10.1) Laboratory Tests Test 02/25/20 10:25 02/26/20 01:42 Sodium Level 136 mmol/L (136-145) 137 mmol/L (136-145) Potassium Level 3.6 mmol/L (3.5-5.1) 3.5 mmol/L (3.5-5.1) Chloride Level 99 mmol/L (98-107) 103 mmol/L (98-107) Carbon Dioxide Level 24 mmol/L (21-32) 24 mmol/L (21-32) Anion Gap 13 (6-14) 10 (6-14) Blood Urea Nitrogen 20 mg/dL (7-20) 16 mg/dL (7-20) Creatinine 0.8 mg/dL (0.6-1.0) 0.8 mg/dL (0.6-1.0) Estimated GFR (Cockcroft-Gault) 80.7 80.7 BUN/Creatinine Ratio 25 (6-20) Glucose Level 110 mg/dL (70-99) 97 mg/dL (70-99) Calcium Level 9.0 mg/dL (8.5-10.1) 8.0 mg/dL (8.5-10.1) Total Bilirubin 1.4 mg/dL (0.2-1.0) Aspartate Amino Transf (AST/SGOT) 12 U/L (15-37) Alanine Aminotransferase (ALT/SGPT) < 6 U/L (14-59) Alkaline Phosphatase 72 U/L (46-116) Total Protein 7.6 g/dL (6.4-8.2) Albumin 3.6 g/dL (3.4-5.0) Albumin/Globulin Ratio 0.9 (1.0-1.7) White Blood Count 12.6 x10^3/uL (4.0-11.0) Red Blood Count 3.47 x10^6/uL (3.50-5.40) Hemoglobin 11.8 g/dL (12.0-15.5) Hematocrit 34.1 % (36.0-47.0) Mean Corpuscular Volume 98 fL (79-100) Mean Corpuscular Hemoglobin 34 pg (25-35) Mean Corpuscular Hemoglobin Concent 35 g/dL (31-37) Red Cell Distribution Width 12.7 % (11.5-14.5) Platelet Count 198 x10^3/uL (140-400) Neutrophils (%) (Auto) 91 % (31-73) Lymphocytes (%) (Auto) 5 % (24-48) Monocytes (%) (Auto) 5 % (0-9) Eosinophils (%) (Auto) 0 % (0-3) Basophils (%) (Auto) 0 % (0-3) Neutrophils # (Auto) 11.4 x10^3/uL (1.8-7.7) Lymphocytes # (Auto) 0.6 x10^3/uL (1.0-4.8) Monocytes # (Auto) 0.6 x10^3/uL (0.0-1.1) Eosinophils # (Auto) 0.0 x10^3/uL (0.0-0.7) Basophils # (Auto) 0.0 x10^3/uL (0.0-0.2) Problem List Problems Medical Problems: (1) Appendicitis with peritonitis Status: Acute Assessment/Plan s/p lap appendectomy cont abx recheck labs in AM JUANIS BEDOYA MD February 26, 2020 09:56
[2020-02-26] MEDS: IV NORMAL SALINE 1000ML BAG 1,000 ML IV SCH (10:10)
[2020-02-26 10:43] VITALS: BP 120/79
--- NOTE | 2020-02-26 13:33 | NUR ---
SS following for discharge planning. SS reviewed pt chart and discussed with pt RN. Pt is self pay pt. Pt is from home and is currently on room air. Pt had appendectomy and currently on full liquid diet. Pt on IV Zosyn. SS will continue to follow for discharge planning.
[2020-02-26 15:00] VITALS: BP 108/61
[2020-02-26 19:33] VITALS: BP 118/61
[2020-02-26] MEDS: LACTOBACILLUS RHAMNOSUS GG 1 CAPSULE. PO SCH (20:52)
[2020-02-26 22:45] VITALS: BP 104/54
[2020-02-27 03:05] VITALS: BP 96/52
[2020-02-27 04:52] LABS: BASO % 0 % (0-3); EOS % 0 % (0-3); HEMOGLOBIN 10.6 g/dL (12.0-15.5); LYMPH # 1.4 x10^3/uL (1.0-4.8); LYMPH % 11 % (24-48); MEAN CORPUSCULAR HEMOGLOBIN 34 pg (25-35); MEAN CORPUSCULAR HGB CONC 34 g/dL (31-37); MEAN CORPUSCULAR VOLUME 98 fL (79-100); MONO # 0.7 x10^3/uL (0.0-1.1); MONO % 6 % (0-9); NEUT # 10.2 x10^3/uL (1.8-7.7); NEUT % 82 % (31-73); PLATELET COUNT 217 x10^3/uL (140-400); RED BLOOD COUNT 3.15 x10^6/uL (3.50-5.40); RED CELL DISTRIBUTION WIDTH 12.6 % (11.5-14.5); WHITE BLOOD COUNT 12.4 x10^3/uL (4.0-11.0)
[2020-02-27 05:25] LABS: ALBUMIN 2.3 g/dL (3.4-5.0); ALBUMIN/GLOBULIN RATIO 0.7 (1.0-1.7); CALCIUM 8.2 mg/dL (8.5-10.1); CREATININE 0.7 mg/dL (0.6-1.0); GFR 94.2; TOTAL BILIRUBIN 0.9 mg/dL (0.2-1.0); TOTAL PROTEIN 5.6 g/dL (6.4-8.2)
[2020-02-27 05:31] LABS: POTASSIUM 2.7 mmol/L (3.5-5.1)
[2020-02-27] MEDS: PIPERACILLIN/TAZOBACTAM 3.375 GM in IV NORMAL SALINE 50ML 50 ML IV SCH ×3 (06:06→16:49)
[2020-02-27] MEDS: ENOXAPARIN 40 MG/0.4 ML SYRINGE. SQ SCH (06:06)
--- NOTE | 2020-02-27 06:53 | NUR ---
IP: Pt is COVID negative.
[2020-02-27 07:00] VITALS: BP 111/68
[2020-02-27] MEDS: POTASSIUM CHLORIDE 10MEQ 100 ML IV SCH ×4 (07:02→13:30)
[2020-02-27] MEDS: HYDROcodone/APAP 5/325MG 1 TAB TABLET PO PRN ×3 (07:24→20:57)
[2020-02-27] MEDS: LACTOBACILLUS RHAMNOSUS GG 1 CAPSULE. PO SCH ×2 (08:34→20:56)
[2020-02-27] MEDS: DOCUSATE SODIUM 100 MG CAPSULE. PO SCH ×2 (08:34→20:56)
[2020-02-27] MEDS: IV RINGERS,LACTATED 1000ML 1,000 ML IV SCH (09:07)
[2020-02-27] MEDS: IV NORMAL SALINE 1000ML BAG 1,000 ML IV SCH (09:34)
[2020-02-27] MEDS ORDERED: POTASSIUM CHLORIDE 20 MEQ TABLET.ER. PO ONE (10:30)
--- NOTE | 2020-02-27 10:31 | PDOC ---
SURGICAL PROGRESS NOTE Subjective Pt with c/o back pain, chronic, some abd pain, bev diet. LE edema Vital Signs Vital Signs Date Time Temp Pulse Resp B/P (MAP) Pulse Ox O2 Delivery O2 Flow Rate FiO2 02/27/20 08:47 92 Room Air 02/27/20 07:00 97.8 83 16 111/68 (82) 97.8 I&O Intake and Output 02/27/20 07:00 Intake Total 750 ml Balance 750 ml Intake Oral 750 ml # Voids 5 General: Alert, Oriented X3, Cooperative, mild distress Abdomen: Soft, Other (mild distention and TTP) Labs Laboratory Tests Test 02/25/20 15:10 02/26/20 01:42 02/27/20 03:35 Coronavirus (COVID-19)(PCR) See separate report White Blood Count 12.6 x10^3/uL (4.0-11.0) 12.4 x10^3/uL (4.0-11.0) Red Blood Count 3.47 x10^6/uL (3.50-5.40) 3.15 x10^6/uL (3.50-5.40) Hemoglobin 11.8 g/dL (12.0-15.5) 10.6 g/dL (12.0-15.5) Hematocrit 34.1 % (36.0-47.0) 31.0 % (36.0-47.0) Mean Corpuscular Volume 98 fL (79-100) 98 fL (79-100) Mean Corpuscular Hemoglobin 34 pg (25-35) 34 pg (25-35) Mean Corpuscular Hemoglobin Concent 35 g/dL (31-37) 34 g/dL (31-37) Red Cell Distribution Width 12.7 % (11.5-14.5) 12.6 % (11.5-14.5) Platelet Count 198 x10^3/uL (140-400) 217 x10^3/uL (140-400) Neutrophils (%) (Auto) 91 % (31-73) 82 % (31-73) Lymphocytes (%) (Auto) 5 % (24-48) 11 % (24-48) Monocytes (%) (Auto) 5 % (0-9) 6 % (0-9) Eosinophils (%) (Auto) 0 % (0-3) 0 % (0-3) Basophils (%) (Auto) 0 % (0-3) 0 % (0-3) Neutrophils # (Auto) 11.4 x10^3/uL (1.8-7.7) 10.2 x10^3/uL (1.8-7.7) Lymphocytes # (Auto) 0.6 x10^3/uL (1.0-4.8) 1.4 x10^3/uL (1.0-4.8) Monocytes # (Auto) 0.6 x10^3/uL (0.0-1.1) 0.7 x10^3/uL (0.0-1.1) Eosinophils # (Auto) 0.0 x10^3/uL (0.0-0.7) 0.0 x10^3/uL (0.0-0.7) Basophils # (Auto) 0.0 x10^3/uL (0.0-0.2) 0.0 x10^3/uL (0.0-0.2) Sodium Level 137 mmol/L (136-145) 139 mmol/L (136-145) Potassium Level 3.5 mmol/L (3.5-5.1) 2.7 mmol/L (3.5-5.1) Chloride Level 103 mmol/L (98-107) 103 mmol/L (98-107) Carbon Dioxide Level 24 mmol/L (21-32) 28 mmol/L (21-32) Anion Gap 10 (6-14) 8 (6-14) Blood Urea Nitrogen 16 mg/dL (7-20) 9 mg/dL (7-20) Creatinine 0.8 mg/dL (0.6-1.0) 0.7 mg/dL (0.6-1.0) Estimated GFR (Cockcroft-Gault) 80.7 94.2 Glucose Level 97 mg/dL (70-99) 74 mg/dL (70-99) Calcium Level 8.0 mg/dL (8.5-10.1) 8.2 mg/dL (8.5-10.1) BUN/Creatinine Ratio 13 (6-20) Total Bilirubin 0.9 mg/dL (0.2-1.0) Aspartate Amino Transf (AST/SGOT) 21 U/L (15-37) Alanine Aminotransferase (ALT/SGPT) 21 U/L (14-59) Alkaline Phosphatase 77 U/L (46-116) Total Protein 5.6 g/dL (6.4-8.2) Albumin 2.3 g/dL (3.4-5.0) Albumin/Globulin Ratio 0.7 (1.0-1.7) Laboratory Tests Test 02/27/20 03:35 White Blood Count 12.4 x10^3/uL (4.0-11.0) Red Blood Count 3.15 x10^6/uL (3.50-5.40) Hemoglobin 10.6 g/dL (12.0-15.5) Hematocrit 31.0 % (36.0-47.0) Mean Corpuscular Volume 98 fL (79-100) Mean Corpuscular Hemoglobin 34 pg (25-35) Mean Corpuscular Hemoglobin Concent 34 g/dL (31-37) Red Cell Distribution Width 12.6 % (11.5-14.5) Platelet Count 217 x10^3/uL (140-400) Neutrophils (%) (Auto) 82 % (31-73) Lymphocytes (%) (Auto) 11 % (24-48) Monocytes (%) (Auto) 6 % (0-9) Eosinophils (%) (Auto) 0 % (0-3) Basophils (%) (Auto) 0 % (0-3) Neutrophils # (Auto) 10.2 x10^3/uL (1.8-7.7) Lymphocytes # (Auto) 1.4 x10^3/uL (1.0-4.8) Monocytes # (Auto) 0.7 x10^3/uL (0.0-1.1) Eosinophils # (Auto) 0.0 x10^3/uL (0.0-0.7) Basophils # (Auto) 0.0 x10^3/uL (0.0-0.2) Sodium Level 139 mmol/L (136-145) Potassium Level 2.7 mmol/L (3.5-5.1) Chloride Level 103 mmol/L (98-107) Carbon Dioxide Level 28 mmol/L (21-32) Anion Gap 8 (6-14) Blood Urea Nitrogen 9 mg/dL (7-20) Creatinine 0.7 mg/dL (0.6-1.0) Estimated GFR (Cockcroft-Gault) 94.2 BUN/Creatinine Ratio 13 (6-20) Glucose Level 74 mg/dL (70-99) Calcium Level 8.2 mg/dL (8.5-10.1) Total Bilirubin 0.9 mg/dL (0.2-1.0) Aspartate Amino Transf (AST/SGOT) 21 U/L (15-37) Alanine Aminotransferase (ALT/SGPT) 21 U/L (14-59) Alkaline Phosphatase 77 U/L (46-116) Total Protein 5.6 g/dL (6.4-8.2) Albumin 2.3 g/dL (3.4-5.0) Albumin/Globulin Ratio 0.7 (1.0-1.7) Problem List Problems Medical Problems: (1) Appendicitis with peritonitis Status: Acute Assessment/Plan s/p lap appendectomy decrease IVF PT consult for back pain and flexril cont IV abx. JUANIS BEDOYA MD February 27, 2020 10:31
[2020-02-27] MEDS: CYCLOBENZAPRINE 10 MG TABLET. PO PRN (10:37)
[2020-02-27 11:00] VITALS: BP 139/69
--- NOTE | 2020-02-27 14:16 | NUR ---
SS following up with discharge planning. SS reviewed pt chart and discussed with pt RN. Pt is from home and is currently on room air. Per RN, pt potassium critically low today. Pt is on IV Zosyn. PT ordered. SS will continue to follow for discharge planning.
[2020-02-27 15:00] VITALS: BP 140/68
[2020-02-27] MEDS: POLYETHYLENE GLYCOL 3350 17 GM PACKET. PO SCH (17:30)
--- NOTE | 2020-02-27 18:06 | PATHOLOGY ---
[facility] Accession Number: [id number] . 01 Material submitted: . appendix - APPENDIX . 01 Clinical history: . Appendicitis . 02 Diagnosis: Appendix, appendectomy: - Acute gangrenous appendicitis, perforated. ([facility]:luis; 02/27/2020) TAY 02/27/2020 1609 Local . 02 Comment: There is no evidence of malignancy. ([facility]:luis; 02/27/2020) . 02 Electronically signed: . Son Fernandez MD, Pathologist NPI- [id number] . 01 Gross description: . The specimen is received in formalin, labeled "Vertz, Bertha, appendix" and consists of a ragged purple wellington possibly necrotic appendix measuring 7.6 cm in length and up to 1.3 cm in diameter with an attached mesoappendix measuring 1.0 cm in thickness. The proximal margin is inked. The lumen ranges from pinpoint up to 0.8 cm in diameter containing brown fecal matter. No gross lesions are identified. Sheep Rancher sections are submitted in A1-A2. (Tyesha; 02/26/2020) JFQ/ALEXA 02/27/2020 1607 Local . 02 Pathologist provided ICD-10: K35.891 . 02 CPT . 967162 Specimen Comment: A courtesy copy of this report has been sent to [phone] Specimen Comment: Report sent to Performed at: 01 [facility] [address] [id number] MD [place] Claudio MD Phone: [phone] Performed at: 02 [facility] [address] [place], [place] [id number] MD Son Fernandez MD Phone: [phone]
[2020-02-27 19:50] VITALS: BP 103/59
[2020-02-27 23:08] VITALS: BP 110/67
[2020-02-28] MEDS: PIPERACILLIN/TAZOBACTAM 3.375 GM in IV NORMAL SALINE 50ML 50 ML IV SCH ×4 (00:11→16:55)
[2020-02-28] MEDS: CYCLOBENZAPRINE 10 MG TABLET. PO PRN (00:12)
[2020-02-28 03:15] VITALS: BP 103/74
[2020-02-28 04:23] LABS: BASO % 0 % (0-3); EOS # 0.1 x10^3/uL (0.0-0.7); EOS % 1 % (0-3); HEMOGLOBIN 10.3 g/dL (12.0-15.5); LYMPH # 2.2 x10^3/uL (1.0-4.8); LYMPH % 15 % (24-48); MEAN CORPUSCULAR HEMOGLOBIN 34 pg (25-35); MEAN CORPUSCULAR HGB CONC 34 g/dL (31-37); MEAN CORPUSCULAR VOLUME 98 fL (79-100); MONO # 1.4 x10^3/uL (0.0-1.1); MONO % 9 % (0-9); NEUT # 11.3 x10^3/uL (1.8-7.7); NEUT % 75 % (31-73); PLATELET COUNT 236 x10^3/uL (140-400); RED BLOOD COUNT 3.07 x10^6/uL (3.50-5.40); RED CELL DISTRIBUTION WIDTH 12.6 % (11.5-14.5)
[2020-02-28 05:02] LABS: ALBUMIN/GLOBULIN RATIO 0.6 (1.0-1.7); CALCIUM 7.9 mg/dL (8.5-10.1); CREATININE 0.6 mg/dL (0.6-1.0); GFR 112.5; POTASSIUM 3.4 mmol/L (3.5-5.1); TOTAL BILIRUBIN 0.7 mg/dL (0.2-1.0); TOTAL PROTEIN 5.3 g/dL (6.4-8.2)
[2020-02-28] MEDS: HYDROcodone/APAP 5/325MG 1 TAB TABLET PO PRN ×3 (06:11→21:08)
[2020-02-28] MEDS: ENOXAPARIN 40 MG/0.4 ML SYRINGE. SQ SCH (06:11)
[2020-02-28 07:10] VITALS: BP 112/65
[2020-02-28] MEDS: DOCUSATE SODIUM 100 MG CAPSULE. PO SCH ×2 (08:03→21:08)
[2020-02-28] MEDS: LACTOBACILLUS RHAMNOSUS GG 1 CAPSULE. PO SCH ×2 (08:03→21:08)
[2020-02-28] MEDS: POLYETHYLENE GLYCOL 3350 17 GM PACKET. PO SCH (08:03)
[2020-02-28] MEDS: POTASSIUM ACETATE IV SCH ×2 (09:42→23:06)
[2020-02-28] MEDS: DEXTROSE 5% IV SCH ×2 (09:42→23:06)
[2020-02-28] MEDS: IV NORMAL SALINE 1000ML BAG 1,000 ML IV SCH (09:51)
[2020-02-28 10:15] VITALS: BP 106/67
--- NOTE | 2020-02-28 11:28 | NUR ---
SS following up with discharge planning. SS reviewed pt chart and discussed with pt RN. PT recommended home independent. Pt ordered potassium infusions. Per RN, WBC increased. SS will continue to follow for discharge planning.
--- NOTE | 2020-02-28 13:57 | PDOC ---
SURGICAL PROGRESS NOTE Subjective Pt feels better today, bev diet, passing stools Vital Signs Vital Signs Date Time Temp Pulse Resp B/P (MAP) Pulse Ox O2 Delivery O2 Flow Rate FiO2 02/28/20 10:15 98.7 73 16 106/67 (80) 99 Room Air 98.7 02/27/20 22:00 10.0 I&O Intake and Output 02/28/20 07:00 Intake Total 1050 ml Balance 1050 ml Intake Oral 1000 ml IV Total 50 ml # Voids 7 General: Alert, Oriented X3, Cooperative, No acute distress Abdomen: Soft, No tenderness, Other (some distention) Labs Laboratory Tests Test 02/27/20 03:35 02/28/20 03:30 02/28/20 03:45 White Blood Count 12.4 x10^3/uL (4.0-11.0) 15.0 x10^3/uL (4.0-11.0) Red Blood Count 3.15 x10^6/uL (3.50-5.40) 3.07 x10^6/uL (3.50-5.40) Hemoglobin 10.6 g/dL (12.0-15.5) 10.3 g/dL (12.0-15.5) Hematocrit 31.0 % (36.0-47.0) 30.0 % (36.0-47.0) Mean Corpuscular Volume 98 fL (79-100) 98 fL (79-100) Mean Corpuscular Hemoglobin 34 pg (25-35) 34 pg (25-35) Mean Corpuscular Hemoglobin Concent 34 g/dL (31-37) 34 g/dL (31-37) Red Cell Distribution Width 12.6 % (11.5-14.5) 12.6 % (11.5-14.5) Platelet Count 217 x10^3/uL (140-400) 236 x10^3/uL (140-400) Neutrophils (%) (Auto) 82 % (31-73) 75 % (31-73) Lymphocytes (%) (Auto) 11 % (24-48) 15 % (24-48) Monocytes (%) (Auto) 6 % (0-9) 9 % (0-9) Eosinophils (%) (Auto) 0 % (0-3) 1 % (0-3) Basophils (%) (Auto) 0 % (0-3) 0 % (0-3) Neutrophils # (Auto) 10.2 x10^3/uL (1.8-7.7) 11.3 x10^3/uL (1.8-7.7) Lymphocytes # (Auto) 1.4 x10^3/uL (1.0-4.8) 2.2 x10^3/uL (1.0-4.8) Monocytes # (Auto) 0.7 x10^3/uL (0.0-1.1) 1.4 x10^3/uL (0.0-1.1) Eosinophils # (Auto) 0.0 x10^3/uL (0.0-0.7) 0.1 x10^3/uL (0.0-0.7) Basophils # (Auto) 0.0 x10^3/uL (0.0-0.2) 0.0 x10^3/uL (0.0-0.2) Sodium Level 139 mmol/L (136-145) 138 mmol/L (136-145) Potassium Level 2.7 mmol/L (3.5-5.1) 3.4 mmol/L (3.5-5.1) Chloride Level 103 mmol/L (98-107) 104 mmol/L (98-107) Carbon Dioxide Level 28 mmol/L (21-32) 26 mmol/L (21-32) Anion Gap 8 (6-14) 8 (6-14) Blood Urea Nitrogen 9 mg/dL (7-20) 6 mg/dL (7-20) Creatinine 0.7 mg/dL (0.6-1.0) 0.6 mg/dL (0.6-1.0) Estimated GFR (Cockcroft-Gault) 94.2 112.5 BUN/Creatinine Ratio 13 (6-20) 10 (6-20) Glucose Level 74 mg/dL (70-99) 92 mg/dL (70-99) Calcium Level 8.2 mg/dL (8.5-10.1) 7.9 mg/dL (8.5-10.1) Total Bilirubin 0.9 mg/dL (0.2-1.0) 0.7 mg/dL (0.2-1.0) Aspartate Amino Transf (AST/SGOT) 21 U/L (15-37) 32 U/L (15-37) Alanine Aminotransferase (ALT/SGPT) 21 U/L (14-59) 30 U/L (14-59) Alkaline Phosphatase 77 U/L (46-116) 86 U/L (46-116) Total Protein 5.6 g/dL (6.4-8.2) 5.3 g/dL (6.4-8.2) Albumin 2.3 g/dL (3.4-5.0) 2.0 g/dL (3.4-5.0) Albumin/Globulin Ratio 0.7 (1.0-1.7) 0.6 (1.0-1.7) Laboratory Tests Test 02/28/20 03:30 02/28/20 03:45 White Blood Count 15.0 x10^3/uL (4.0-11.0) Red Blood Count 3.07 x10^6/uL (3.50-5.40) Hemoglobin 10.3 g/dL (12.0-15.5) Hematocrit 30.0 % (36.0-47.0) Mean Corpuscular Volume 98 fL (79-100) Mean Corpuscular Hemoglobin 34 pg (25-35) Mean Corpuscular Hemoglobin Concent 34 g/dL (31-37) Red Cell Distribution Width 12.6 % (11.5-14.5) Platelet Count 236 x10^3/uL (140-400) Neutrophils (%) (Auto) 75 % (31-73) Lymphocytes (%) (Auto) 15 % (24-48) Monocytes (%) (Auto) 9 % (0-9) Eosinophils (%) (Auto) 1 % (0-3) Basophils (%) (Auto) 0 % (0-3) Neutrophils # (Auto) 11.3 x10^3/uL (1.8-7.7) Lymphocytes # (Auto) 2.2 x10^3/uL (1.0-4.8) Monocytes # (Auto) 1.4 x10^3/uL (0.0-1.1) Eosinophils # (Auto) 0.1 x10^3/uL (0.0-0.7) Basophils # (Auto) 0.0 x10^3/uL (0.0-0.2) Sodium Level 138 mmol/L (136-145) Potassium Level 3.4 mmol/L (3.5-5.1) Chloride Level 104 mmol/L (98-107) Carbon Dioxide Level 26 mmol/L (21-32) Anion Gap 8 (6-14) Blood Urea Nitrogen 6 mg/dL (7-20) Creatinine 0.6 mg/dL (0.6-1.0) Estimated GFR (Cockcroft-Gault) 112.5 BUN/Creatinine Ratio 10 (6-20) Glucose Level 92 mg/dL (70-99) Calcium Level 7.9 mg/dL (8.5-10.1) Total Bilirubin 0.7 mg/dL (0.2-1.0) Aspartate Amino Transf (AST/SGOT) 32 U/L (15-37) Alanine Aminotransferase (ALT/SGPT) 30 U/L (14-59) Alkaline Phosphatase 86 U/L (46-116) Total Protein 5.3 g/dL (6.4-8.2) Albumin 2.0 g/dL (3.4-5.0) Albumin/Globulin Ratio 0.6 (1.0-1.7) Problem List Problems Medical Problems: (1) Appendicitis with peritonitis Status: Acute Assessment/Plan s/p lap appendectomy cont abx and supportive care, replacing K if continued WBC elevation, will plan CT a/p, high risk for abscess. JUANIS BEDOYA MD February 28, 2020 13:57
[2020-02-28 14:28] VITALS: BP 104/69
[2020-02-28 19:42] VITALS: BP 120/69
[2020-02-28 22:43] VITALS: BP 113/71
[2020-02-29] MEDS: PIPERACILLIN/TAZOBACTAM 3.375 GM in IV NORMAL SALINE 50ML 50 ML IV SCH ×5 (00:39→23:30)
[2020-02-29] MEDS: CYCLOBENZAPRINE 10 MG TABLET. PO PRN (00:39)
[2020-02-29 02:20] VITALS: BP 113/68
[2020-02-29 04:36] LABS: BASO % 0 % (0-3); EOS # 0.1 x10^3/uL (0.0-0.7); EOS % 1 % (0-3); HEMATOCRIT 30.1 % (36.0-47.0); HEMOGLOBIN 10.4 g/dL (12.0-15.5); LYMPH # 2.7 x10^3/uL (1.0-4.8); LYMPH % 17 % (24-48); MEAN CORPUSCULAR HEMOGLOBIN 34 pg (25-35); MEAN CORPUSCULAR HGB CONC 35 g/dL (31-37); MEAN CORPUSCULAR VOLUME 98 fL (79-100); MONO % 12 % (0-9); NEUT # 11.1 x10^3/uL (1.8-7.7); NEUT % 70 % (31-73); PLATELET COUNT 259 x10^3/uL (140-400); RED BLOOD COUNT 3.07 x10^6/uL (3.50-5.40)
[2020-02-29 05:05] LABS: ALBUMIN/GLOBULIN RATIO 0.6 (1.0-1.7); CALCIUM 8.2 mg/dL (8.5-10.1); CREATININE 0.7 mg/dL (0.6-1.0); GFR 94.2; POTASSIUM 3.6 mmol/L (3.5-5.1); TOTAL BILIRUBIN 0.4 mg/dL (0.2-1.0); TOTAL PROTEIN 5.5 g/dL (6.4-8.2)
[2020-02-29] MEDS: ENOXAPARIN 40 MG/0.4 ML SYRINGE. SQ SCH (05:54)
[2020-02-29 07:59] VITALS: BP 113/70
[2020-02-29] MEDS: DOCUSATE SODIUM 100 MG CAPSULE. PO SCH ×2 (08:39→20:40)
[2020-02-29] MEDS: POLYETHYLENE GLYCOL 3350 17 GM PACKET. PO SCH (08:39)
[2020-02-29] MEDS: HYDROcodone/APAP 5/325MG 1 TAB TABLET PO PRN ×2 (08:39→18:34)
[2020-02-29] MEDS: LACTOBACILLUS RHAMNOSUS GG 1 CAPSULE. PO SCH ×2 (08:39→20:40)
[2020-02-29] MEDS: MORPHINE SULFATE 2 MG/ML VIAL. IV PRN (08:40)
[2020-02-29 11:59] VITALS: BP 119/73
[2020-02-29] MEDS: POTASSIUM ACETATE IV SCH (12:42)
[2020-02-29] MEDS: DEXTROSE 5% IV SCH (12:42)
--- NOTE | 2020-02-29 13:19 | PDOC ---
SURGICAL PROGRESS NOTE Subjective Pt feels better, bev diet, passing loose stools Vital Signs Vital Signs Date Time Temp Pulse Resp B/P (MAP) Pulse Ox O2 Delivery O2 Flow Rate FiO2 02/29/20 11:59 99.2 68 18 119/73 (88) 98 Room Air 99.2 02/28/20 20:00 10.0 I&O Intake and Output 02/29/20 07:00 Intake Total 3290 ml Balance 3290 ml Intake Oral 2220 ml IV Total 1070 ml # Voids 8 General: Alert, Oriented X3, Cooperative, No acute distress Abdomen: Soft, No tenderness, Other (mild distention) Labs Laboratory Tests Test 02/28/20 03:30 02/28/20 03:45 02/29/20 03:45 White Blood Count 15.0 x10^3/uL (4.0-11.0) 16.0 x10^3/uL (4.0-11.0) Red Blood Count 3.07 x10^6/uL (3.50-5.40) 3.07 x10^6/uL (3.50-5.40) Hemoglobin 10.3 g/dL (12.0-15.5) 10.4 g/dL (12.0-15.5) Hematocrit 30.0 % (36.0-47.0) 30.1 % (36.0-47.0) Mean Corpuscular Volume 98 fL (79-100) 98 fL (79-100) Mean Corpuscular Hemoglobin 34 pg (25-35) 34 pg (25-35) Mean Corpuscular Hemoglobin Concent 34 g/dL (31-37) 35 g/dL (31-37) Red Cell Distribution Width 12.6 % (11.5-14.5) 13.0 % (11.5-14.5) Platelet Count 236 x10^3/uL (140-400) 259 x10^3/uL (140-400) Neutrophils (%) (Auto) 75 % (31-73) 70 % (31-73) Lymphocytes (%) (Auto) 15 % (24-48) 17 % (24-48) Monocytes (%) (Auto) 9 % (0-9) 12 % (0-9) Eosinophils (%) (Auto) 1 % (0-3) 1 % (0-3) Basophils (%) (Auto) 0 % (0-3) 0 % (0-3) Neutrophils # (Auto) 11.3 x10^3/uL (1.8-7.7) 11.1 x10^3/uL (1.8-7.7) Lymphocytes # (Auto) 2.2 x10^3/uL (1.0-4.8) 2.7 x10^3/uL (1.0-4.8) Monocytes # (Auto) 1.4 x10^3/uL (0.0-1.1) 2.0 x10^3/uL (0.0-1.1) Eosinophils # (Auto) 0.1 x10^3/uL (0.0-0.7) 0.1 x10^3/uL (0.0-0.7) Basophils # (Auto) 0.0 x10^3/uL (0.0-0.2) 0.0 x10^3/uL (0.0-0.2) Sodium Level 138 mmol/L (136-145) 141 mmol/L (136-145) Potassium Level 3.4 mmol/L (3.5-5.1) 3.6 mmol/L (3.5-5.1) Chloride Level 104 mmol/L (98-107) 107 mmol/L (98-107) Carbon Dioxide Level 26 mmol/L (21-32) 26 mmol/L (21-32) Anion Gap 8 (6-14) 8 (6-14) Blood Urea Nitrogen 6 mg/dL (7-20) 5 mg/dL (7-20) Creatinine 0.6 mg/dL (0.6-1.0) 0.7 mg/dL (0.6-1.0) Estimated GFR (Cockcroft-Gault) 112.5 94.2 BUN/Creatinine Ratio 10 (6-20) 7 (6-20) Glucose Level 92 mg/dL (70-99) 117 mg/dL (70-99) Calcium Level 7.9 mg/dL (8.5-10.1) 8.2 mg/dL (8.5-10.1) Total Bilirubin 0.7 mg/dL (0.2-1.0) 0.4 mg/dL (0.2-1.0) Aspartate Amino Transf (AST/SGOT) 32 U/L (15-37) 30 U/L (15-37) Alanine Aminotransferase (ALT/SGPT) 30 U/L (14-59) 33 U/L (14-59) Alkaline Phosphatase 86 U/L (46-116) 122 U/L (46-116) Total Protein 5.3 g/dL (6.4-8.2) 5.5 g/dL (6.4-8.2) Albumin 2.0 g/dL (3.4-5.0) 2.0 g/dL (3.4-5.0) Albumin/Globulin Ratio 0.6 (1.0-1.7) 0.6 (1.0-1.7) Laboratory Tests Test 02/29/20 03:45 White Blood Count 16.0 x10^3/uL (4.0-11.0) Red Blood Count 3.07 x10^6/uL (3.50-5.40) Hemoglobin 10.4 g/dL (12.0-15.5) Hematocrit 30.1 % (36.0-47.0) Mean Corpuscular Volume 98 fL (79-100) Mean Corpuscular Hemoglobin 34 pg (25-35) Mean Corpuscular Hemoglobin Concent 35 g/dL (31-37) Red Cell Distribution Width 13.0 % (11.5-14.5) Platelet Count 259 x10^3/uL (140-400) Neutrophils (%) (Auto) 70 % (31-73) Lymphocytes (%) (Auto) 17 % (24-48) Monocytes (%) (Auto) 12 % (0-9) Eosinophils (%) (Auto) 1 % (0-3) Basophils (%) (Auto) 0 % (0-3) Neutrophils # (Auto) 11.1 x10^3/uL (1.8-7.7) Lymphocytes # (Auto) 2.7 x10^3/uL (1.0-4.8) Monocytes # (Auto) 2.0 x10^3/uL (0.0-1.1) Eosinophils # (Auto) 0.1 x10^3/uL (0.0-0.7) Basophils # (Auto) 0.0 x10^3/uL (0.0-0.2) Sodium Level 141 mmol/L (136-145) Potassium Level 3.6 mmol/L (3.5-5.1) Chloride Level 107 mmol/L (98-107) Carbon Dioxide Level 26 mmol/L (21-32) Anion Gap 8 (6-14) Blood Urea Nitrogen 5 mg/dL (7-20) Creatinine 0.7 mg/dL (0.6-1.0) Estimated GFR (Cockcroft-Gault) 94.2 BUN/Creatinine Ratio 7 (6-20) Glucose Level 117 mg/dL (70-99) Calcium Level 8.2 mg/dL (8.5-10.1) Total Bilirubin 0.4 mg/dL (0.2-1.0) Aspartate Amino Transf (AST/SGOT) 30 U/L (15-37) Alanine Aminotransferase (ALT/SGPT) 33 U/L (14-59) Alkaline Phosphatase 122 U/L (46-116) Total Protein 5.5 g/dL (6.4-8.2) Albumin 2.0 g/dL (3.4-5.0) Albumin/Globulin Ratio 0.6 (1.0-1.7) Problem List Problems Medical Problems: (1) Appendicitis with peritonitis Status: Acute Assessment/Plan cont abx OOB and ADAT plan CT in AM to evaluate for abscess and given elevated WBC JUANIS BEDOYA MD February 29, 2020 13:19
[2020-02-29 15:59] VITALS: BP 118/73
[2020-02-29 19:00] VITALS: BP 121/72
[2020-02-29 23:05] VITALS: BP 116/65
[2020-03-01 03:05] VITALS: BP 119/73
[2020-03-01] MEDS: ENOXAPARIN 40 MG/0.4 ML SYRINGE. SQ SCH (05:40)
[2020-03-01] MEDS: PIPERACILLIN/TAZOBACTAM 3.375 GM in IV NORMAL SALINE 50ML 50 ML IV SCH ×4 (05:40→23:26)
[2020-03-01] MEDS ORDERED: IOHEXOL 300 MG/ML 100ML VIAL. IV ONE (07:15)
[2020-03-01] MEDS ORDERED: IOHEXOL 240 MG/ML 50ML VIAL. PO ONE (07:15)
[2020-03-01] MEDS ORDERED: CONTRAST GIVEN. MC PRN (07:30)
[2020-03-01 07:40] VITALS: BP 127/68
--- NOTE | 2020-03-01 09:22 | RAD ---
Examination: CT ABD PELV W/ORAL IV CONTRAST History: Reason: WBC elevation s/p perforated appendicitis / Spl. Instructions: IV OMNI 300 75 MLS AND PO OMNI 240 50 MLS / History: Comparison/Correlation: 02/25/2020 CT abdomen and pelvis with IV and oral contrast Findings: Axial images of the abdomen and pelvis were obtained following IV and oral contrast. Sagittal and coronal reformatted images provided. Small bilateral pleural effusions are present. Liver, spleen, pancreas, adrenal glands, and left kidney are normal. Punctate right renal superior pole calyceal calculus again identified. No collecting system obstruction. Retroaortic left renal vein is present. Inflamed appendix is no longer evident. Surgical clips are present in the upper pelvic region. Complex ill-defined collection is present medial to the cecum in the region of the surgical clips. A partially defined component of this collection is seen to measure 2.1 cm longitudinal by 1.8 cm transverse by 2.2 cm anteroposterior on axial image 52 and coronal image 14. Ill-defined collection appears to extend along the right pelvic sidewall to the cul-de-sac where there is a large 10.2 cm transverse by 4.2 cm anteroposterior by 5.3 cm in longitudinal collection. Subtle rim enhancement is noted. Urinary bladder is unremarkable. Uterus is unremarkable. Ovarian follicles bilaterally are suggested. Radiopaque density is present bilaterally about the uterus along the study course of the fallopian tubes. Correlate with history of intervention. Subcutaneous gas is noted involving the left lower abdominal wall level. Transitional L5 vertebra is present. Impression: Large loculated collection within the cul-de-sac. This appears to communicate with along the right pelvic sidewall and mostly ill-defined collection subjacent to the terminal ileum was where surgical clips are seen. Findings of concern for abscess. PQRS Compliance Statement: One or more of the following individualized dose reduction techniques were utilized for this examination: 1. Automated exposure control 2. Adjustment of the mA and/or kV according to patient size 3. Use of iterative reconstruction technique Electronically signed by: Goyo Reyes MD (03/01/2020 9:19 AM) [id number]
--- NOTE | 2020-03-01 09:42 | PDOC ---
SURGICAL PROGRESS NOTE Subjective Pt reports feeling well, bev diet Vital Signs Vital Signs Date Time Temp Pulse Resp B/P (MAP) Pulse Ox O2 Delivery O2 Flow Rate FiO2 03/01/20 07:40 98.9 64 16 127/68 (87) 100 Room Air 98.9 I&O Intake and Output 03/01/20 07:00 Intake Total 1110 ml Balance 1110 ml Intake Oral 960 ml IV Total 150 ml # Voids 4 General: Alert, Oriented X3, Cooperative, No acute distress Abdomen: Soft, No tenderness, Other (less distention) Labs Laboratory Tests Test 02/29/20 03:45 White Blood Count 16.0 x10^3/uL (4.0-11.0) Red Blood Count 3.07 x10^6/uL (3.50-5.40) Hemoglobin 10.4 g/dL (12.0-15.5) Hematocrit 30.1 % (36.0-47.0) Mean Corpuscular Volume 98 fL (79-100) Mean Corpuscular Hemoglobin 34 pg (25-35) Mean Corpuscular Hemoglobin Concent 35 g/dL (31-37) Red Cell Distribution Width 13.0 % (11.5-14.5) Platelet Count 259 x10^3/uL (140-400) Neutrophils (%) (Auto) 70 % (31-73) Lymphocytes (%) (Auto) 17 % (24-48) Monocytes (%) (Auto) 12 % (0-9) Eosinophils (%) (Auto) 1 % (0-3) Basophils (%) (Auto) 0 % (0-3) Neutrophils # (Auto) 11.1 x10^3/uL (1.8-7.7) Lymphocytes # (Auto) 2.7 x10^3/uL (1.0-4.8) Monocytes # (Auto) 2.0 x10^3/uL (0.0-1.1) Eosinophils # (Auto) 0.1 x10^3/uL (0.0-0.7) Basophils # (Auto) 0.0 x10^3/uL (0.0-0.2) Sodium Level 141 mmol/L (136-145) Potassium Level 3.6 mmol/L (3.5-5.1) Chloride Level 107 mmol/L (98-107) Carbon Dioxide Level 26 mmol/L (21-32) Anion Gap 8 (6-14) Blood Urea Nitrogen 5 mg/dL (7-20) Creatinine 0.7 mg/dL (0.6-1.0) Estimated GFR (Cockcroft-Gault) 94.2 BUN/Creatinine Ratio 7 (6-20) Glucose Level 117 mg/dL (70-99) Calcium Level 8.2 mg/dL (8.5-10.1) Total Bilirubin 0.4 mg/dL (0.2-1.0) Aspartate Amino Transf (AST/SGOT) 30 U/L (15-37) Alanine Aminotransferase (ALT/SGPT) 33 U/L (14-59) Alkaline Phosphatase 122 U/L (46-116) Total Protein 5.5 g/dL (6.4-8.2) Albumin 2.0 g/dL (3.4-5.0) Albumin/Globulin Ratio 0.6 (1.0-1.7) I have reviewed the following CT concern for abscess Problem List Problems Medical Problems: (1) Appendicitis with peritonitis Status: Acute Assessment/Plan s/p lap appendectomy for perforated appendicitis will ask IR for drain cont x JUANIS BEDOYA MD March 01, 2020 09:42
--- NOTE | 2020-03-01 10:44 | NUR ---
T/C to Dr Kohli re CT scan results that show an abdominal abscess and his consult to Dr Ibarra for a drain. Dr Kohli wanted me to speak with Dr Ibarra to see if there was any way he could do the procedure today. I did speak with Dr Ibarra who will look at the scan and let me know later today if he feels it needs to be done today. Keep pt on clear liquids until supper, then if he is not able to drain the abscess today, we can feed her supper and then NPO at midnight.
[2020-03-01 11:59] VITALS: BP 105/62
[2020-03-01] MEDS: POLYETHYLENE GLYCOL 3350 17 GM PACKET. PO SCH (12:56)
[2020-03-01] MEDS: DOCUSATE SODIUM 100 MG CAPSULE. PO SCH ×2 (12:57→19:20)
[2020-03-01] MEDS: LACTOBACILLUS RHAMNOSUS GG 1 CAPSULE. PO SCH ×2 (12:57→18:09)
[2020-03-01 15:59] VITALS: BP 119/64
[2020-03-01 19:00] VITALS: BP 103/71
[2020-03-01 23:00] VITALS: BP 108/63
[2020-03-02] VITALS (17 sets, daily range): BP systolic 110–132; BP diastolic 40–81
[2020-03-02] MEDS: ENOXAPARIN 40 MG/0.4 ML SYRINGE. SQ SCH (01:59)
[2020-03-02] MEDS: PIPERACILLIN/TAZOBACTAM 3.375 GM in IV NORMAL SALINE 50ML 50 ML IV SCH ×4 (05:33→23:34)
[2020-03-02] MEDS: DOCUSATE SODIUM 100 MG CAPSULE. PO SCH ×2 (09:00→21:00)
[2020-03-02] MEDS: POLYETHYLENE GLYCOL 3350 17 GM PACKET. PO SCH (09:00)
[2020-03-02 09:44] LABS: PROTHROMBIN TIME PATIENT 15.1 SEC (11.7-14.0)
[2020-03-02] MEDS ORDERED: LIDOCAINE WITH 8.4% SOD BICARB 3 ML DISP.SYRIN. ONE ×2 (10:14→10:25)
--- NOTE | 2020-03-02 10:20 | NUR ---
SW following. Discussed with RN, pt from home, room air. Pt having drain placed today for abscess. HCFS following for self pay status. SW will continue to follow.
[2020-03-02] MEDS ORDERED: fentaNYL PF VIAL 100 MCG/2 ML VIAL ONE (10:25)
[2020-03-02] MEDS ORDERED: MIDAZOLAM HCL/PF 2 MG/2 ML VIAL. ONE (10:25)
[2020-03-02] MEDS ORDERED: MIDAZOLAM HCL/PF 2 MG/2 ML VIAL. IV ONE (11:00)
[2020-03-02] MEDS ORDERED: fentaNYL PF VIAL 100 MCG/2 ML VIAL IV ONE (11:00)
[2020-03-02] MEDS ORDERED: LIDOCAINE WITH 8.4% SOD BICARB 3 ML DISP.SYRIN. IJ ONE (11:00)
[2020-03-02] MEDS: HYDROcodone/APAP 5/325MG 1 TAB TABLET PO PRN (11:07)
[2020-03-02] MEDS: LACTOBACILLUS RHAMNOSUS GG 1 CAPSULE. PO SCH ×2 (12:09→20:33)
[2020-03-02] MEDS: MORPHINE SULFATE 2 MG/ML VIAL. IV PRN (12:16)
--- NOTE | 2020-03-02 13:26 | RAD ---
CT-guided drainage, pelvic abscess 03/02/2020 11:21 AM Indication: Pelvic abscess following recent ruptured appendicitis Discussion: The risks and benefits of the procedure, including but not limited to, bleeding and infection were discussed patient. Informed consent was obtained. The patient was brought to the CT scanner and placed in the prone position. A timeout procedure was performed. CT imaging redemonstrates a fluid collection the pelvis amenable to percutaneous drainage via a right sided transgluteal approach. The overlying soft tissues were prepped and draped using maximum sterile barrier technique. 1% lidocaine without epinephrine was administered for local anesthesia. Under intermittent CT guidance, 17-gauge guiding needle was advanced into the fluid collection. Material is seen at the needle hub. A guidewire was advanced into the collection over which, following dilatation, a 12 Chinese drainage catheter was placed. Approximately 100 cc of purulent drainage was removed. Catheter position was confirmed by CT. The catheter was secured in place. Sterile dressings were applied The procedure was performed under conscious sedation including continuous cardiopulmonary monitoring via dedicated sedation nurse. Sedation time: 20 minutes Impression: CT-guided pelvic abscess drainage, right transgluteal approach PQRS Compliance Statement: One or more of the following individualized dose reduction techniques were utilized for this examination: 1. Automated exposure control 2. Adjustment of the mA and/or kV according to patient size 3. Use of iterative reconstruction technique
--- NOTE | 2020-03-02 15:49 | PDOC ---
SURGICAL PROGRESS NOTE Subjective Pt with c/o pain at drain site, but overall feels better Vital Signs Vital Signs Date Time Temp Pulse Resp B/P (MAP) Pulse Ox O2 Delivery O2 Flow Rate FiO2 03/02/20 15:00 97.8 60 18 130/80 (97) 94 Room Air 97.8 03/02/20 12:16 2.0 I&O Intake and Output 03/02/20 07:00 Intake Total 860 ml Balance 860 ml Intake Oral 760 ml IV Total 100 ml # Voids 2 General: Alert, Oriented X3, Cooperative, No acute distress Abdomen: Soft Labs Laboratory Tests Test 03/02/20 09:15 Prothrombin Time 15.1 SEC (11.7-14.0) Prothromb Time International Ratio 1.2 (0.8-1.1) Activated Partial Thromboplast Time 27 SEC (24-38) Laboratory Tests Test 03/02/20 09:15 Prothrombin Time 15.1 SEC (11.7-14.0) Prothromb Time International Ratio 1.2 (0.8-1.1) Activated Partial Thromboplast Time 27 SEC (24-38) Problem List Problems Medical Problems: (1) Appendicitis with peritonitis Status: Acute Assessment/Plan s/p lap appendectomy cont abx and drain Justicifation of Admission Dx: Justifications for Admission: Justification of Admission Dx: Yes Sepsis: Dehydration Comments: perforated appendicitis with abscess JUANIS BEDOYA MD Mar 02, 2020 15:49
[2020-03-03 03:00] VITALS: BP 122/68
[2020-03-03] MEDS: PIPERACILLIN/TAZOBACTAM 3.375 GM in IV NORMAL SALINE 50ML 50 ML IV SCH ×2 (05:49→12:00)
[2020-03-03] MEDS: ENOXAPARIN 40 MG/0.4 ML SYRINGE. SQ SCH (05:50)
--- NOTE | 2020-03-03 06:30 | NUR ---
left forearm IVF site swollen,pt stated it hurts and wont allow nurse to start another IV stated will tell DR want to take oral antibiotic instead
[2020-03-03 07:00] VITALS: BP 116/51
[2020-03-03] MEDS: POLYETHYLENE GLYCOL 3350 17 GM PACKET. PO SCH (09:00)
[2020-03-03] MEDS: DOCUSATE SODIUM 100 MG CAPSULE. PO SCH (09:00)
[2020-03-03] MEDS: LACTOBACILLUS RHAMNOSUS GG 1 CAPSULE. PO SCH (09:18)
--- NOTE | 2020-03-03 10:19 | NUR ---
SW following. Discussed with RN, pt from home, wanting to go home today. Pt's IV went bad, pt does not want another one. Drain placed yesterday. SW will continue to follow.
[2020-03-03 11:00] VITALS: BP 131/75
[2020-03-03 15:00] VITALS: BP 138/58
--- NOTE | 2020-03-03 16:28 | PDOC3 ---
Discharge Summary Visit Information Date of Admission: February 25, 2020 Date of Discharge: Mar 03, 2020 Admitting Diagnosis: Perforated appendicitis Final Diagnosis Problems Medical Problems: (1) Appendicitis with peritonitis Status: Acute Brief Hospital Course Allergies Allergies Coded Allergies Type Severity Reaction Last Updated Verified No Known Drug Allergies 02/25/20 No Vital Signs Vital Signs Date Time Temp Pulse Resp B/P (MAP) Pulse Ox O2 Delivery O2 Flow Rate FiO2 03/03/20 15:00 98.5 18 138/58 (84) 100 Room Air 98.5 03/03/20 11:00 17 03/02/20 12:16 2.0 Lab Results Laboratory Tests Test 03/02/20 09:15 Prothrombin Time 15.1 SEC (11.7-14.0) Prothromb Time International Ratio 1.2 (0.8-1.1) Activated Partial Thromboplast Time 27 SEC (24-38) Brief Hospital Course Ms. Orozco is a 39 old F with perforated appendicitis. She underwent laparoscopic appendectomy and treated with abx. She developed abscess and treated with drain. She is stable and doing well. Discharge Information Condition at Discharge: Improved Follow Up: Weeks (1) Disposition/Orders: D/C to Home Scheduled Info (No Known Medications Prior To Admisstion) Each, 1 EACH DAILY for none, (Reported) Entered as Reported by: ELVIN RUIZ on 02/25/201605 Last Action: New Order on 02/25/201605 by ELVIN RUIZ Patient Instructions Patient Instructions No heavy lifting. Diet as tolerated. Empty and record drain output daily F/u with Seun in one week Scripts for norco and augmentin. Justicifation of Admission Dx: Justifications for Admission: Justification of Admission Dx: Yes Sepsis: Dehydration JUANIS BEDOYA MD Mar 03, 2020 16:28
[2020-03-03] MEDS ORDERED: HYDR-3164 PO (17:26)
[2020-03-03] MEDS ORDERED: AMOX1TAB61 PO (17:27)
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
== END 2020-03-03 18:00 | disposition home or self-care (01) | DRG 853 ==
LOC: ER 08:33 → 4 NORTH 12:10
PROVIDERS: ADMIT Surgery; ATTEND Surgery
PROC: 0DTJ4ZZ Resection of Appendix, Percutaneous Endoscopic Approach (ICD-10-PCS; principal; 2020-02-25 15:30)
PROC: 0W9J30Z Drainage of Pelvic Cavity with Drainage Device, Percutaneous Approach (ICD-10-PCS; 2020-03-01)
DX: A41.9 Sepsis, unspecified organism (principal); K35.33 Acute appendicitis with perforation, localized peritonitis, and gangrene, with abscess; E86.0 Dehydration; F17.210 Nicotine dependence, cigarettes, uncomplicated; Z20.828 Contact with and (suspected) exposure to other viral communicable diseases; G89.29 Other chronic pain; Z82.3 Family history of stroke; Z79.899 Other long term (current) drug therapy
CPT/HCPCS: 36415; 49406; 74177; 80048; 80053; 81001; 81025; 85007; 85025; 85610; 85730; 87071; 87075; 87077; 87186; 88304; 96361; 96365; 96375; 96376; 99152; 99153; 99285; A7015; C1729; C1894; J0330; J1100; J1650; J1885; J2250; J2270; J2405; J2543; J2704; J2710; J3010; J3480; J3490; J7030; J7060; J7120; Q9966; Q9967; G0378; U0003-CS

== ENCOUNTER 2020-03-10 06:50 | Outpatient (CLI) | payer SELFPAY ==
[~2020-03-10] VITALS: Ht 154.9 cm; Wt 40.8 kg
[~2020-03-10 06:50] MED LIST changes: +AMOX1TAB61 PO; +HYDR-3164 PO
[2020-03-10 07:47] VITALS: BP 109/82
[2020-03-10] MEDS ORDERED: IOHEXOL 240 MG/ML 50ML VIAL. ONE (07:54)
[2020-03-10] MEDS ORDERED: IOHEXOL 240 MG/ML 50ML VIAL. IJ ONE (08:30)
--- NOTE | 2020-03-12 15:28 | RAD ---
03/12/2020 1:22 PM Procedure: Abscessogram Clinical Indication: DRAIN CHECK/POSS REMOVAL Discussion: The procedure was explained in its entirety to the patient or the patients designated industrial relations representative by a member of the treatment team, including a discussion of the risks, benefits and commonly accepted alternatives to the procedure, as well as the expected consequences of no therapy whatsoever. Discussion of the risks included, but was not limited to, those that are most frequent and those that are rare but possibly severe or life-threatening, as well as the possibility of unforeseen complications. All elements of maximal sterile barrier technique including the use of a cap, mask, sterile gown, sterile gloves, large sterile sheet, appropriate hand hygiene, and 2% chlorhexidine for cutaneous antisepsis (or acceptable alternative antiseptic per current guidelines) were followed for this procedure. Drain was inspected. Minimal serous output was seen to drain. Patient reports less than 10 cc daily times several days of this type of output. Minimal contrast was administered under fluoroscopy. Minimal residual cavity noted. Contrast was nearly completely aspirated. Given history and findings, the drain was removed without issue. Sterile dressings were applied. Total fluoroscopy time: 4 min Dose area product: 1 Impression: Abscessogram and drain removal
== END 2020-03-10 08:45 | disposition home or self-care (01) ==
LOC: INTRAD 06:50
PROVIDERS: ATTEND Surgery
DX: Z45.2 Encounter for adjustment and management of vascular access device (principal)
CPT/HCPCS: 49424; 76080; Q9966